=== PATIENT | male | born 1980 | race Two or more races ===

== ENCOUNTER 2017-02-13 11:09 | Inpatient (IN) | payer OTHER ==
[2017-02-13 11:32] VITALS: BMI 23.6
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
[2017-02-13] MEDS ORDERED: guaiFENesin/D-METHORPHAN HB 10 ML UNIT-DOSE CUPS PO PRN (13:37)
[2017-02-13] MEDS ORDERED: MAGNESIUM HYDROX 2400MG/30ML ORAL SUSPENSION 30 ML CUP PO PRN (13:37)
[2017-02-13] MEDS ORDERED: LOPERAMIDE HCL 2 MG CAPSULE PO PRN (13:37)
[2017-02-13] MEDS ORDERED: MENTHOL/PHENOL 1 EACH UD MM PRN (13:37)
[2017-02-13] MEDS ORDERED: MAGNESIUM CITRATE 300 ML BOTTLE PO PRN (13:37)
[2017-02-13] MEDS ORDERED: diphenhydrAMINE HCL 50 MG CAPSULE PO PRN (13:37)
[2017-02-13] MEDS ORDERED: IBUPROFEN 400 MG TABLET (FP) PO PRN (13:37)
[2017-02-13] MEDS ORDERED: MAG HYDROX/AL HYDROX/SIMETH 30 ML UNIT-DOSE CUP PO PRN (13:37)
[2017-02-13] MEDS ORDERED: chlordiazePOXIDE HCL 25 MG CAPSULE PO ONE (13:37)
[2017-02-13] MEDS ORDERED: P-EPHED 60MG/TRIPROLIDI 2.5MG TABLET PO PRN (13:37)
[2017-02-13] MEDS ORDERED: chlordiazePOXIDE HCL 25 MG CAPSULE PO PRN (13:37)
[2017-02-13] MEDS ORDERED: ACETAMINOPHEN 325 MG TABLET (FP) PO PRN (13:37)
[2017-02-13] MEDS ORDERED: hydrOXYzine PAMOATE 50 MG CAPSULE (FP) PO PRN (13:37)
[2017-02-13] MEDS ORDERED: NICOTINE POLACRILEX 2 MG GUM BC PRN (13:37)
[2017-02-13] MEDS: DARUNAVIR ETHANOLATE 800 MG TAB PO SCH (15:24)
[2017-02-13] MEDS: ASPIRIN 81 MG CHEWABLE TABLETS PO SCH (15:24)
[2017-02-13] MEDS: NICOTINE 14 MG/24 HOURS TOPICAL PATCH TD SCH (15:27)
[2017-02-13] MEDS: RITONAVIR 100 MG TABLET PO SCH (18:22)
[2017-02-13] MEDS: EMTRICITABINE 200MG/TENOFOVIR 300MG PO SCH (18:22)
[2017-02-13] MEDS: BACITRACIN 15 GM TUBE TOPICAL OINTMENT TP SCH ×2 (18:23→22:55)
[2017-02-13] MEDS: chlordiazePOXIDE HCL 25 MG CAPSULE PO SCH ×2 (18:24→22:29)
[2017-02-13 20:51] LABS: URINE APPEARANCE TURBID; URINE BILIRUBIN NEGATIVE (NEGATIVE); URINE BLOOD NEGATIVE (NEGATIVE); URINE COLOR YELLOW; URINE GLUCOSE (UA) NEGATIVE (NEGATIVE); URINE KETONE NEGATIVE (NEGATIVE); URINE LEUK ESTERASE TRACE (NEGATIVE); URINE NITRITE NEGATIVE (NEGATIVE); URINE PROTEIN NEGATIVE (NEGATIVE)
[2017-02-13 21:01] LABS: URINE BACTERIA RARE /hpf (NONE SEEN); URINE MUCUS RARE; URINE RBC 3 /hpf (0-3); URINE WBC 26 /hpf (3-5); YEAST MANY
[2017-02-13] MEDS: THIAMINE HCL 100 MG TABLET (FP) PO SCH (22:29)
[2017-02-14] MEDS: chlordiazePOXIDE HCL 25 MG CAPSULE PO SCH ×4 (05:45→22:07)
[2017-02-14 10:06] LABS: MCH 26.4 pg (25.7-33.7); MCHC 32.4 g/dl (32.0-35.9); MEAN CELL VOLUME 81.5 fl (80-96); MEAN PLT VOLUME 8.6 fl (7.5-11.1); PLATELET COUNT 284 K/MM3 (134-434); RDW 16.8 % (11.9-15.9); WHITE BLOOD COUNT 4.9 K/mm3 (4.0-10.0)
[2017-02-14] MEDS: DARUNAVIR ETHANOLATE 800 MG TAB PO SCH (10:23)
[2017-02-14] MEDS: BACITRACIN 15 GM TUBE TOPICAL OINTMENT TP SCH ×2 (10:24→22:32)
[2017-02-14] MEDS: EMTRICITABINE 200MG/TENOFOVIR 300MG PO SCH (10:24)
[2017-02-14] MEDS: PRENATAL VITAMINS W/ FOLIC ACID TABLET (FP) PO SCH (10:24)
[2017-02-14] MEDS: RITONAVIR 100 MG TABLET PO SCH (10:24)
[2017-02-14] MEDS: ASPIRIN 81 MG CHEWABLE TABLETS PO SCH (10:24)
[2017-02-14] MEDS: NICOTINE 14 MG/24 HOURS TOPICAL PATCH TD SCH (10:25)
[2017-02-14 10:28] LABS: ALBUMIN 3.1 g/dl (3.4-5.0); ALK PHOS 63 U/L (45-117); ANION GAP 6 (8-16); BILIRUBIN,TOTAL 0.4 mg/dL (0.2-1.0); CALCIUM 8.7 mg/dL (8.5-10.1); CO2 26 mmol/L (21-32); CREATININE 1.1 mg/dL (0.7-1.3); GLUCOSE,RANDOM 96 mg/dL (74-106); SGOT/AST 13 U/L (15-37); SGPT/ALT 14 U/L (12-78); TOT PROT 6.6 g/dl (6.4-8.2)
--- NOTE | 2017-02-14 10:29 | PN ---
S CIWA - CIWA Score Nausea/Vomitin Muscle Tremors: 3 Anxiety: 2 Agitation: 2 Paroxysmal Sweats: 1-Minimal Palms Moist Orientation: 0-Oriented Tacttile Disturbances: 1-Very Mild Itch/Numbness Auditory Disturbances: 1-Very Mild Visual Disturbances: 1-Very Mild Sensitivity Headache: 2-Mild CIWA-Ar Total Score: 16 S Progress Note (SOAP) Subjective: alert,irritable,anxious,interrupted sleep,tremor Objective: 02/14/17 10:24 Vital Signs Temperature 97.5 F L 02/14/17 09:49 Pulse Rate 80 02/14/17 09:49 Respiratory Rate 20 02/14/17 09:49 Blood Pressure 127/65 02/14/17 09:49 O2 Sat by Pulse Oximetry (%) ekg sinus bradycardia 56/min repolarization no chest pain,no sob,no dizziness 02/14/17 10:29 Laboratory Last Values WBC 4.9 K/mm3 (4.0-10.0) 02/14/17 07:45 RBC 4.83 M/mm3 (4.00-5.60) 02/14/17 07:45 Hgb 12.7 GM/dL (11.7-16.9) 02/14/17 07:45 Hct 39.4 % (35.4-49) 02/14/17 07:45 MCV 81.5 fl (80-96) 02/14/17 07:45 MCH 26.4 pg (25.7-33.7) 02/14/17 07:45 MCHC 32.4 g/dl (32.0-35.9) 02/14/17 07:45 RDW 16.8 % (11.9-15.9) H 02/14/17 07:45 Plt Count 284 K/MM3 (134-434) 02/14/17 07:45 MPV 8.6 fl (7.5-11.1) 02/14/17 07:45 Urine Color Yellow 02/13/17 19:00 Urine Appearance Turbid 02/13/17 19:00 Urine pH 6.0 (5.0-8.0) 02/13/17 19:00 Ur Specific [place] 1.020 (1.005-1.025) 02/13/17 19:00 Urine Protein Negative (NEGATIVE) 02/13/17 19:00 Urine Glucose (UA) Negative (NEGATIVE) 02/13/17 19:00 Urine Ketones Negative (NEGATIVE) 02/13/17 19:00 Urine Blood Negative (NEGATIVE) 02/13/17 19:00 Urine Nitrite Negative (NEGATIVE) 02/13/17 19:00 Urine Bilirubin Negative (NEGATIVE) 02/13/17 19:00 Urine Urobilinogen 2.0 mg/dL (0.2-1.0) 02/13/17 19:00 Ur Leukocyte Esterase Trace (NEGATIVE) 02/13/17 19:00 Urine RBC 3 /hpf (0-3) 02/13/17 19:00 Urine WBC 26 /hpf (3-5) 02/13/17 19:00 Ur Epithelial Cells Rare /hpf (FEW) 02/13/17 19:00 Urine Bacteria Rare /hpf (NONE SEEN) 02/13/17 19:00 Urine Mucus Rare 02/13/17 19:00 Urine Yeast Many 02/13/17 19:00 Assessment: 02/14/17 10:33 withdrawal symptom Plan: continue detox,encourage oral fluid,repeat ua
--- NOTE | 2017-02-14 11:39 | CONSULT ---
[facility] Psychiatric Consult - Data Date of interview: 02/14/17 Admission source: [facility] Identifying data: This is 36 years old male with no psychiatric hospitalizatin history intoxicated with: Alcohol, Cpcoaine, Cannabis, Nicotine Substance Abuse History: - Smoking Cessation. Smoking history: Current every day smoker. Have you smoked in the past 12 months: Yes. Aproximately how many cigarettes per day: 5. Cigars Per Day: 0. Hx Chewing Tobacco Use: No. Initiated information on smoking cessation: Yes. 'Breaking Loose' booklet given : 02/13/17 (GIVEN ON UNIT.). - Substance & Tx. History. Hx Alcohol Use: Yes. Hx Substance Use: Yes. Substance Use Type: Alcohol, Cocaine, Marijuana. Hx Substance Use Treatment: Yes (Previous Detox and Rehab admissions at [facility]. Rehab at [facility] - Substances Abused. Alcohol. Route: Oral. Frequency: Daily. Amount used: VODKA(1 PINT). Age of first use: 21. Date of Last Use: 02/12/17. Crack. Route: Smoking. Frequency: Daily. Amount used : $40. Age of first use: 24. Date of Last Use: 02/11/17. Marijuana/ Hashish. Frequency: Daily. Amount used: $10. Age of first use: 20. Date of Last Use: 02/12/17 Medical History: HIV+, htn, LEARNING DISORDER, Right hand injury Psychiatric History: Patient reprots anxiety, insomnia, reprots taking prior to admission: Seroquel 50mg po qhs Physical/Sexual Abuse/Trauma History: Denies Additional Comment: Seroquel 50mg po qhs Mental Status Exam - Mental Status Exam Alert and Oriented to: Person Cognitive Function: Fair Patient Appearance: Unkempt Mood: Sad Affect: Flat Patient Behavior: Talkative Speech Pattern: Appropriate Voice Loudness: Mildly Loud Thought Process: Circumstantial Thought Disorder: Being Controlled Hallucinations: Denies Suicidal Ideation: Denies Homicidal Ideation: Denies Insight/Judgement: Fair Sleep: Difficulty falling asleep Appetite: Fair Muscle strength/Tone: Normal Gait/Station: Normal Additional Comments: Seroquel 50mg po qhs Psychiatric Findings - Problem List ([place] 1, 2,3) (1) Alcohol dependence with uncomplicated withdrawal Current Visit: Yes Status: Acute (2) Cannabis dependence, uncomplicated Current Visit: Yes Status: Acute (3) Cocaine dependence, uncomplicated Current Visit: Yes Status: Acute (4) Nicotine dependence Current Visit: Yes Status: Chronic Qualifiers: Nicotine product type: cigarettes Substance use status: uncomplicated Qualified Code(s): F17.210 - Nicotine dependence, cigarettes, uncomplicated (5) Cocaine dependence Current Visit: No Status: Acute Qualifiers: Substance use status: uncomplicated Qualified Code(s): F14.20 - Cocaine dependence, uncomplicated (6) Substance-induced sleep disorder Current Visit: No Status: Chronic (7) Drug-induced mood disorder Current Visit: Yes Status: Acute - Initial Treatment Plan Initial Treatment Plan: Seroquel 50mg po qhs
[2017-02-14] MEDS ORDERED: PENICILLIN G BENZATHINE 2,400,000 UNIT/4 ML PFS IM ONE ×2 (15:22→15:42)
--- NOTE | 2017-02-14 15:27 | PN ---
S Progress Note Note: RPR reactive with 1:16; pt states was treated x one a while ago. will start first Penicillan VK 2.4million units now. pt will need to continue to receive the next dose next week and last dose on the third week. pt in agreement
[2017-02-14] MEDS: THIAMINE HCL 100 MG TABLET (FP) PO SCH (22:06)
[2017-02-14] MEDS: QUEtiapine FUMARATE 50 MG TABLET PO SCH (22:07)
[2017-02-15] MEDS: chlordiazePOXIDE HCL 25 MG CAPSULE PO SCH ×2 (06:42→10:14)
--- NOTE | 2017-02-15 10:02 | PN ---
[facility] CIWA - CIWA Score Nausea/Vomitin Muscle Tremors: 3 Anxiety: 3 Agitation: 2 Paroxysmal Sweats: 1-Minimal Palms Moist Orientation: 0-Oriented Tacttile Disturbances: 1-Very Mild Itch/Numbness Auditory Disturbances: 1-Very Mild Visual Disturbances: 1-Very Mild Sensitivity Headache: 1-Very Mild CIWA-Ar Total Score: 16 S Progress Note (SOAP) Subjective: ALERT,IRRITABLE,ANXIOUS,INTERRUPTED SLEEP,TREMOR Objective: 02/15/17 09:58 Vital Signs Temperature 96.1 F L 02/15/17 06:00 Pulse Rate 71 02/15/17 06:00 Respiratory Rate 18 02/15/17 06:00 Blood Pressure 116/66 02/15/17 06:00 O2 Sat by Pulse Oximetry (%) Laboratory Last Values WBC 4.9 K/mm3 (4.0-10.0) 02/14/17 07:45 RBC 4.83 M/mm3 (4.00-5.60) 02/14/17 07:45 Hgb 12.7 GM/dL (11.7-16.9) 02/14/17 07:45 Hct 39.4 % (35.4-49) 02/14/17 07:45 MCV 81.5 fl (80-96) 02/14/17 07:45 MCH 26.4 pg (25.7-33.7) 02/14/17 07:45 MCHC 32.4 g/dl (32.0-35.9) 02/14/17 07:45 RDW 16.8 % (11.9-15.9) H 02/14/17 07:45 Plt Count 284 K/MM3 (134-434) 02/14/17 07:45 MPV 8.6 fl (7.5-11.1) 02/14/17 07:45 Sodium 137 mmol/L (136-145) 02/14/17 07:45 Potassium 4.1 mmol/L (3.5-5.1) 02/14/17 07:45 Chloride 105 mmol/L (98-107) 02/14/17 07:45 Carbon Dioxide 26 mmol/L (21-32) 02/14/17 07:45 Anion Gap 6 (8-16) L 02/14/17 07:45 BUN 15 mg/dL (7-18) 02/14/17 07:45 Creatinine 1.1 mg/dL (0.7-1.3) 02/14/17 07:45 Creat Clearance w eGFR > 60 (>60) 02/14/17 07:45 Random Glucose 96 mg/dL (74-106) 02/14/17 07:45 Calcium 8.7 mg/dL (8.5-10.1) 02/14/17 07:45 Total Bilirubin 0.4 mg/dL (0.2-1.0) 02/14/17 07:45 AST 13 U/L (15-37) L D 02/14/17 07:45 ALT 14 U/L (12-78) D 02/14/17 07:45 Alkaline Phosphatase 63 U/L (45-117) 02/14/17 07:45 Total Protein 6.6 g/dl (6.4-8.2) 02/14/17 07:45 Albumin 3.1 g/dl (3.4-5.0) L D 02/14/17 07:45 Urine Color Yellow 02/13/17 19:00 Urine Appearance Turbid 02/13/17 19:00 Urine pH 6.0 (5.0-8.0) 02/13/17 19:00 Ur Specific [place] 1.020 (1.005-1.025) 02/13/17 19:00 Urine Protein Negative (NEGATIVE) 02/13/17 19:00 Urine Glucose (UA) Negative (NEGATIVE) 02/13/17 19:00 Urine Ketones Negative (NEGATIVE) 02/13/17 19:00 Urine Blood Negative (NEGATIVE) 02/13/17 19:00 Urine Nitrite Negative (NEGATIVE) 02/13/17 19:00 Urine Bilirubin Negative (NEGATIVE) 02/13/17 19:00 Urine Urobilinogen 2.0 mg/dL (0.2-1.0) 02/13/17 19:00 Ur Leukocyte Esterase Trace (NEGATIVE) 02/13/17 19:00 Urine RBC 3 /hpf (0-3) 02/13/17 19:00 Urine WBC 26 /hpf (3-5) 02/13/17 19:00 Ur Epithelial Cells Rare /hpf (FEW) 02/13/17 19:00 Urine Bacteria Rare /hpf (NONE SEEN) 02/13/17 19:00 Urine Mucus Rare 02/13/17 19:00 Urine Yeast Many 02/13/17 19:00 RPR Titer Reactive 1:16 (NONREACTIVE) H D 02/14/17 07:45 Hepatitis C Antibody <0.1 s/co ratio (0.0-0.9) 02/14/17 07:45 02/15/17 10:03 RECEIVING BICILLIN 2.4 MILLIONS UNIT IM YESTERDAY,WILL REQUIRE WEEKLY FOR 2 MORE DOSES Assessment: 02/15/17 10:04 WITHDRAWAL SYMPTOM Plan: CONTINUE DETOX
[2017-02-15] MEDS: BACITRACIN 15 GM TUBE TOPICAL OINTMENT TP SCH ×2 (10:12→22:07)
[2017-02-15] MEDS: RITONAVIR 100 MG TABLET PO SCH (10:12)
[2017-02-15] MEDS: PRENATAL VITAMINS W/ FOLIC ACID TABLET (FP) PO SCH (10:12)
[2017-02-15] MEDS: EMTRICITABINE 200MG/TENOFOVIR 300MG PO SCH (10:12)
[2017-02-15] MEDS: DARUNAVIR ETHANOLATE 800 MG TAB PO SCH (10:12)
[2017-02-15] MEDS: ASPIRIN 81 MG CHEWABLE TABLETS PO SCH (10:12)
[2017-02-15] MEDS: NICOTINE 14 MG/24 HOURS TOPICAL PATCH TD SCH (10:13)
[2017-02-15] MEDS: chlordiazePOXIDE 5 MG CAPSULE PO SCH ×2 (17:46→22:05)
[2017-02-15] MEDS: QUEtiapine FUMARATE 50 MG TABLET PO SCH (22:05)
[2017-02-15] MEDS: THIAMINE HCL 100 MG TABLET (FP) PO SCH (22:05)
[2017-02-16] MEDS: chlordiazePOXIDE 5 MG CAPSULE PO SCH ×2 (05:53→10:06)
[2017-02-16] MEDS: DARUNAVIR ETHANOLATE 800 MG TAB PO SCH (10:06)
[2017-02-16] MEDS: RITONAVIR 100 MG TABLET PO SCH (10:06)
[2017-02-16] MEDS: EMTRICITABINE 200MG/TENOFOVIR 300MG PO SCH (10:06)
[2017-02-16] MEDS: ASPIRIN 81 MG CHEWABLE TABLETS PO SCH (10:06)
[2017-02-16] MEDS: PRENATAL VITAMINS W/ FOLIC ACID TABLET (FP) PO SCH (10:06)
[2017-02-16] MEDS: BACITRACIN 15 GM TUBE TOPICAL OINTMENT TP SCH (10:07)
[2017-02-16] MEDS: NICOTINE 14 MG/24 HOURS TOPICAL PATCH TD SCH (10:08)
--- NOTE | 2017-02-16 10:09 | PN ---
S Progress Note (SOAP) Subjective: ALERT,NO COMPLAINT Objective: 02/16/17 10:06 Vital Signs Temperature 99.5 F 02/16/17 09:37 Pulse Rate 87 02/16/17 09:37 Respiratory Rate 18 02/16/17 09:37 Blood Pressure 142/84 02/16/17 09:37 O2 Sat by Pulse Oximetry (%) Assessment: 02/16/17 10:06 PATIENT IS STABLE FOR DISCHARGE Plan: FOLLOW UP WITH [facility] PATIENT WILL NEED BICILLIN 2.4 MILLION UNITS ON 02/21/17 AND 02/28/17 TO COMPLETE TREATMENT FOR SYPHILIS IN [facility]
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
[2017-02-16 14:25] VITALS: BP 135/90; PULSE 90; TEMP 97.9
--- NOTE | 2017-02-16 14:52 | EKG ---
Test Reason : Blood Pressure : / mmHG Vent. Rate : 056 BPM Atrial Rate : 056 BPM P-R Int : 176 ms QRS Dur : 100 ms QT Int : 446 ms P-R-T Axes : 072 065 063 degrees QTc Int : [address] ELEVATION, CONSIDER EARLY REPOLARIZATION BORDERLINE ECG NO PREVIOUS ECGS AVAILABLE Confirmed by ERNIE ACUÑA MD ([id number]) on 02/16/2017 2:52:22 PM Referred By: Confirmed By:ERNIE ACUÑA MD
[2017-02-16] MEDS ORDERED: chlordiazePOXIDE HCL 10 MG CAPSULE PO SCH (17:00)
== END 2017-02-16 14:31 | disposition other institution (70) | DRG 774 ==
LOC: YASAS 11:09 → Y6N 14:20
PROVIDERS: ADMIT Internal Medicine; ATTEND Internal Medicine
PROC: HZ2ZZZZ Detoxification Services for Substance Abuse Treatment (ICD-10-PCS; principal; 2017-02-13)
DX: F14.20 Cocaine dependence, uncomplicated (principal); F12.20 Cannabis dependence, uncomplicated; F17.210 Nicotine dependence, cigarettes, uncomplicated; F19.24 Other psychoactive substance dependence with psychoactive substance-induced mood disorder; F19.282 Other psychoactive substance dependence with psychoactive substance-induced sleep disorder; Z21 Asymptomatic human immunodeficiency virus [HIV] infection status; A53.9 Syphilis, unspecified; T23.27 Burn of second degree of wrist; T23.20 Burn of second degree of hand, unspecified site; T31.0 Burns involving less than 10% of body surface; X08.8XXS Exposure to other specified smoke, fire and flames, sequela; R00.1 Bradycardia, unspecified; Z87.898 Personal history of other specified conditions
CPT/HCPCS: 36415; 80053; 81003; 81015; 85027; 86593; 86780; 86803; 93005; 93010

== ENCOUNTER 2017-02-16 15:29 | Inpatient (IN) | payer OTHER ==
[2017-02-16 17:40] VITALS: BMI 23.6
[2017-02-16] MEDS ORDERED: P-EPHED 60MG/TRIPROLIDI 2.5MG TABLET PO PRN (18:02)
[2017-02-16] MEDS ORDERED: IBUPROFEN 400 MG TABLET (FP) PO PRN (18:02)
[2017-02-16] MEDS ORDERED: ACETAMINOPHEN 325 MG TABLET (FP) PO PRN (18:02)
[2017-02-16] MEDS ORDERED: guaiFENesin/D-METHORPHAN HB 10 ML UNIT-DOSE CUPS PO PRN (18:02)
[2017-02-16] MEDS ORDERED: MAGNESIUM HYDROX 2400MG/30ML ORAL SUSPENSION 30 ML CUP PO PRN (18:02)
[2017-02-16] MEDS ORDERED: MENTHOL/PHENOL 1 EACH UD MM PRN (18:02)
[2017-02-16] MEDS ORDERED: MAGNESIUM CITRATE 300 ML BOTTLE PO PRN (18:02)
[2017-02-16] MEDS ORDERED: LOPERAMIDE HCL 2 MG CAPSULE PO PRN (18:02)
[2017-02-16] MEDS ORDERED: MAG HYDROX/AL HYDROX/SIMETH 30 ML UNIT-DOSE CUP PO PRN (18:02)
--- NOTE | 2017-02-16 18:06 | HP ---
[facility] Assess/Revision - Admission History Admitted to Rehab from: [facility] Date of Admission to Rehab: 02/16/17 - Vital signs Vital Signs: Vital Signs Period Temp Pulse Resp BP Sys/Vanessa Pulse Ox Last 24 Hr 98.6 F 81 18 - Findings Detox History & Physical reviewed: Yes Concur with findings: Yes
[2017-02-16] MEDS: THIAMINE HCL 100 MG TABLET (FP) PO SCH (21:52)
[2017-02-16] MEDS: diphenhydrAMINE HCL 50 MG CAPSULE PO PRN (21:53)
[2017-02-16] MEDS ORDERED: RITONAVIR 100 MG TABLET PO SCH (22:00)
[2017-02-16] MEDS ORDERED: DARUNAVIR ETHANOLATE 800 MG TAB PO SCH (22:00)
[2017-02-16] MEDS ORDERED: EMTRICITABINE 200MG/TENOFOVIR 300MG PO SCH (22:00)
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
[2017-02-17] MEDS: NICOTINE 14 MG/24 HOURS TOPICAL PATCH TD SCH (10:37)
[2017-02-17] MEDS: PRENATAL VITAMINS W/ FOLIC ACID TABLET (FP) PO SCH (10:38)
[2017-02-17] MEDS: RITONAVIR 100 MG TABLET PO SCH (10:38)
[2017-02-17] MEDS: DARUNAVIR ETHANOLATE 800 MG TAB PO SCH (10:38)
[2017-02-17] MEDS: EMTRICITABINE 200MG/TENOFOVIR 300MG PO SCH (10:39)
[2017-02-17] MEDS ORDERED: PNEUMOC 13-VAL CONJ-DIP CRM/PF 0.5 ML DISP.SYRIN IM ONE (12:00)
[2017-02-17] MEDS: THIAMINE HCL 100 MG TABLET (FP) PO SCH (21:14)
[2017-02-17] MEDS: QUEtiapine FUMARATE 50 MG TABLET PO SCH (21:14)
[2017-02-18] MEDS: EMTRICITABINE 200MG/TENOFOVIR 300MG PO SCH (10:13)
[2017-02-18] MEDS: NICOTINE 14 MG/24 HOURS TOPICAL PATCH TD SCH (10:13)
[2017-02-18] MEDS: PRENATAL VITAMINS W/ FOLIC ACID TABLET (FP) PO SCH (10:13)
[2017-02-18] MEDS: DARUNAVIR ETHANOLATE 800 MG TAB PO SCH (10:13)
[2017-02-18] MEDS: RITONAVIR 100 MG TABLET PO SCH (10:14)
[2017-02-18] MEDS: diphenhydrAMINE HCL 50 MG CAPSULE PO PRN (21:38)
[2017-02-18] MEDS: THIAMINE HCL 100 MG TABLET (FP) PO SCH (21:38)
[2017-02-18] MEDS: QUEtiapine FUMARATE 50 MG TABLET PO SCH (21:39)
[2017-02-19] MEDS: RITONAVIR 100 MG TABLET PO SCH (10:13)
[2017-02-19] MEDS: EMTRICITABINE 200MG/TENOFOVIR 300MG PO SCH (10:13)
[2017-02-19] MEDS: DARUNAVIR ETHANOLATE 800 MG TAB PO SCH (10:13)
[2017-02-19] MEDS: PRENATAL VITAMINS W/ FOLIC ACID TABLET (FP) PO SCH (10:13)
[2017-02-19] MEDS: NICOTINE 14 MG/24 HOURS TOPICAL PATCH TD SCH (10:14)
[2017-02-19] MEDS: QUEtiapine FUMARATE 50 MG TABLET PO SCH (21:44)
[2017-02-19] MEDS: THIAMINE HCL 100 MG TABLET (FP) PO SCH (21:44)
[2017-02-19] MEDS: diphenhydrAMINE HCL 50 MG CAPSULE PO PRN (21:45)
[2017-02-20] MEDS: DARUNAVIR ETHANOLATE 800 MG TAB PO SCH (10:25)
[2017-02-20] MEDS: PRENATAL VITAMINS W/ FOLIC ACID TABLET (FP) PO SCH (10:25)
[2017-02-20] MEDS: RITONAVIR 100 MG TABLET PO SCH (10:25)
[2017-02-20] MEDS: NICOTINE 14 MG/24 HOURS TOPICAL PATCH TD SCH (10:26)
[2017-02-20] MEDS: EMTRICITABINE 200MG/TENOFOVIR 300MG PO SCH (10:27)
[2017-02-20] MEDS: QUEtiapine FUMARATE 50 MG TABLET PO SCH (21:38)
[2017-02-20] MEDS: THIAMINE HCL 100 MG TABLET (FP) PO SCH (21:38)
[2017-02-20] MEDS: diphenhydrAMINE HCL 50 MG CAPSULE PO PRN (21:39)
[2017-02-21] MEDS: PRENATAL VITAMINS W/ FOLIC ACID TABLET (FP) PO SCH (10:49)
[2017-02-21] MEDS: EMTRICITABINE 200MG/TENOFOVIR 300MG PO SCH (10:49)
[2017-02-21] MEDS: RITONAVIR 100 MG TABLET PO SCH (10:49)
[2017-02-21] MEDS: DARUNAVIR ETHANOLATE 800 MG TAB PO SCH (10:49)
[2017-02-21] MEDS: NICOTINE 14 MG/24 HOURS TOPICAL PATCH TD SCH (10:49)
--- NOTE | 2017-02-21 13:02 | PN ---
[facility] Progress Note Note: patient due for 2nd shot of bicillin 2.4 million unit today i
[2017-02-21] MEDS ORDERED: PENICILLIN G BENZATHINE 2,400,000 UNIT/4 ML PFS IM ONE (13:30)
--- NOTE | 2017-02-21 16:48 | PN ---
Psychiatric Progress Note Vital Signs: Vital Signs Period Temp Pulse Resp BP Sys/Vanessa Pulse Ox Last 24 Hr 98.3 F 67 16-16 139/87 Date of Session: 02/21/17 Chief Complaint:: Davidson nervios,davidson not sleeping well. HPI: Patient addressed Alcohol,Cocaine and Cannabis dependence comorbid with Substance induced mood disorder. Current Medications: Active Medications Generic Name Dose Route Start Last Admin Trade Name Freq PRN Reason Stop Dose Admin Acetaminophen 650 mg 02/16/17 18:02 Tylenol - PO Q4H PRN FEVER OR PAIN Al Hydroxide/Mg Hydroxide 30 ml 02/16/17 18:02 02/19/17 17:45 Mylanta Oral Suspension - PO 30 ml Q6H PRN Administration DYSPEPSIA Darunavir 800 mg 02/17/17 10:00 02/21/17 10:49 Prezista - PO 800 mg DAILY HAN Administration Diphenhydramine HCl 50 mg 02/16/17 18:02 02/20/17 21:39 Benadryl - PO 50 mg HSMR1 PRN Administration FOR ITCHING Emtricitabine/Tenofovir 1 tab 02/17/17 10:00 02/21/17 10:49 Truvada PO 1 tab DAILY AHN Administration Eucalyptus/Menthol/Phenol/Sorbitol 1 each 02/16/17 18:02 Cepastat Lozenge - MM Q4H PRN SORE THROAT Guaifenesin 10 ml 02/16/17 18:02 Robitussin Dm - PO Q6H PRN COUGH Ibuprofen 400 mg 02/16/17 18:02 Motrin - PO Q6H PRN PAIN Loperamide HCl 4 mg 02/16/17 18:02 Imodium - PO Q6H PRN DIARRHEA Magnesium Hydroxide 30 ml 02/16/17 18:02 Milk Of Magnesia - PO DAILY PRN CONSTIPATION Nicotine 14 mg 02/17/17 10:00 02/21/17 10:49 Nicoderm Patch - TD 14 mg DAILY HAN Administration Nicotine Polacrilex 2 mg 02/16/17 18:02 Nicorette Gum - BUC Q2H PRN NICOTINE REPLACEMENT RX Multivit/Folic Acid/Iron 1 tab 02/17/17 10:00 02/21/17 10:49 Vitamins (Sjr) - PO 1 tab DAILY HAN Administration Pseudoephedrine/Triprolidine 1 combo 02/16/17 18:02 Actifed - PO TID PRN NASAL CONGESTION Quetiapine Fumarate 100 mg 02/21/17 22:00 Seroquel - PO HS HAN Ritonavir 100 mg 02/17/17 10:00 02/21/17 10:49 Norvir - PO 100 mg DAILY HAN Administration Thiamine HCl 100 mg 02/16/17 22:00 02/20/17 21:38 Vitamin B1 - PO 100 mg HS HAN Administration Current Side Effect: No Lab tests ordered: No Lab tests reviewed: Yes Provider note:: Chart was revuewed,patient was evaluated to address his ongoing sleeping difficulties along with mood instability,some anxiety.Properties of Seroquel has been discussed with the patient including benefits,side effects and dose adjustment.Seroquel 50 mg po hs will be adjusted to 100 mg po hs. supportive therapy,psychoeducation was provided. Total face to face time:: 30 Mental Status Exam - Mental Status Exam Alert and Oriented to: Time, Place, Person Cognitive Function: Grossly Intact Patient Appearance: Well Groomed Mood: Anxious Affect: Mood Congruent, Labile Patient Behavior: Cooperative Speech Pattern: Clear Voice Loudness: Normal Thought Process: Goal Oriented Thought Disorder: Not Present Hallucinations: Denies Suicidal Ideation: Denies Homicidal Ideation: Denies Insight/Judgement: Fair Sleep: Difficulty falling asleep Appetite: Good Muscle strength/Tone: Normal Gait/Station: Normal Psychiatric Treatment Plan - Problem List (1) Alcohol dependence Current Visit: Yes (2) Cannabis dependence Current Visit: Yes (3) Substance induced mood disorder Current Visit: Yes (4) Burn of right wrist and hand Current Visit: Yes Qualifiers: Encounter type: sequela Burn degree: partial thickness (2nd degree) Qualified Code(s): T23.271S - Burn of second degree of right wrist, sequela; T23.201S - Burn of second degree of right hand, unspecified site, sequela Comment: Due to contact with Acid. (5) Cocaine dependence Current Visit: Yes Qualifiers:
[2017-02-21] MEDS: THIAMINE HCL 100 MG TABLET (FP) PO SCH (22:02)
[2017-02-21] MEDS: QUEtiapine FUMARATE 100 MG TABLET (FP) PO SCH (22:02)
[2017-02-22] MEDS: NICOTINE 14 MG/24 HOURS TOPICAL PATCH TD SCH (10:23)
[2017-02-22] MEDS: PRENATAL VITAMINS W/ FOLIC ACID TABLET (FP) PO SCH (10:23)
[2017-02-22] MEDS: DARUNAVIR ETHANOLATE 800 MG TAB PO SCH (10:45)
[2017-02-22] MEDS: EMTRICITABINE 200MG/TENOFOVIR 300MG PO SCH (11:42)
[2017-02-22] MEDS: RITONAVIR 100 MG TABLET PO SCH (11:42)
[2017-02-22] MEDS: THIAMINE HCL 100 MG TABLET (FP) PO SCH (22:04)
[2017-02-22] MEDS: QUEtiapine FUMARATE 100 MG TABLET (FP) PO SCH (22:05)
[2017-02-22] MEDS: diphenhydrAMINE HCL 50 MG CAPSULE PO PRN (22:05)
[2017-02-23] MEDS: NICOTINE 14 MG/24 HOURS TOPICAL PATCH TD SCH (10:35)
[2017-02-23] MEDS: PRENATAL VITAMINS W/ FOLIC ACID TABLET (FP) PO SCH (10:35)
[2017-02-23] MEDS: EMTRICITABINE 200MG/TENOFOVIR 300MG PO SCH (10:35)
[2017-02-23] MEDS: RITONAVIR 100 MG TABLET PO SCH (10:35)
[2017-02-23] MEDS: DARUNAVIR ETHANOLATE 800 MG TAB PO SCH (10:35)
[2017-02-23] MEDS: QUEtiapine FUMARATE 100 MG TABLET (FP) PO SCH (22:08)
[2017-02-23] MEDS: THIAMINE HCL 100 MG TABLET (FP) PO SCH (22:08)
[2017-02-23] MEDS: diphenhydrAMINE HCL 50 MG CAPSULE PO PRN (22:08)
[2017-02-24] MEDS: PRENATAL VITAMINS W/ FOLIC ACID TABLET (FP) PO SCH (10:48)
[2017-02-24] MEDS: DARUNAVIR ETHANOLATE 800 MG TAB PO SCH (10:48)
[2017-02-24] MEDS: RITONAVIR 100 MG TABLET PO SCH (10:48)
[2017-02-24] MEDS: EMTRICITABINE 200MG/TENOFOVIR 300MG PO SCH (10:48)
[2017-02-24] MEDS: NICOTINE 14 MG/24 HOURS TOPICAL PATCH TD SCH (10:49)
[2017-02-24] MEDS: QUEtiapine FUMARATE 100 MG TABLET (FP) PO SCH (21:13)
[2017-02-24] MEDS: diphenhydrAMINE HCL 50 MG CAPSULE PO PRN (21:13)
[2017-02-24] MEDS: THIAMINE HCL 100 MG TABLET (FP) PO SCH (21:13)
[2017-02-25] MEDS: PRENATAL VITAMINS W/ FOLIC ACID TABLET (FP) PO SCH (10:23)
[2017-02-25] MEDS: DARUNAVIR ETHANOLATE 800 MG TAB PO SCH (10:24)
[2017-02-25] MEDS: RITONAVIR 100 MG TABLET PO SCH (10:24)
[2017-02-25] MEDS: NICOTINE 14 MG/24 HOURS TOPICAL PATCH TD SCH (10:24)
[2017-02-25] MEDS: EMTRICITABINE 200MG/TENOFOVIR 300MG PO SCH (10:24)
[2017-02-25] MEDS: NICOTINE POLACRILEX 2 MG GUM BUC PRN (10:25)
[2017-02-25] MEDS: QUEtiapine FUMARATE 100 MG TABLET (FP) PO SCH (21:53)
[2017-02-25] MEDS: THIAMINE HCL 100 MG TABLET (FP) PO SCH (21:53)
[2017-02-25] MEDS: diphenhydrAMINE HCL 50 MG CAPSULE PO PRN (21:53)
[2017-02-26] MEDS: NICOTINE 14 MG/24 HOURS TOPICAL PATCH TD SCH (10:29)
[2017-02-26] MEDS: PRENATAL VITAMINS W/ FOLIC ACID TABLET (FP) PO SCH (10:30)
[2017-02-26] MEDS: EMTRICITABINE 200MG/TENOFOVIR 300MG PO SCH (10:30)
[2017-02-26] MEDS: DARUNAVIR ETHANOLATE 800 MG TAB PO SCH (10:30)
[2017-02-26] MEDS: RITONAVIR 100 MG TABLET PO SCH (10:30)
[2017-02-26] MEDS: QUEtiapine FUMARATE 100 MG TABLET (FP) PO SCH (21:31)
[2017-02-26] MEDS: THIAMINE HCL 100 MG TABLET (FP) PO SCH (21:31)
[2017-02-26] MEDS: diphenhydrAMINE HCL 50 MG CAPSULE PO PRN (21:32)
[2017-02-27] MEDS: EMTRICITABINE 200MG/TENOFOVIR 300MG PO SCH (10:34)
[2017-02-27] MEDS: DARUNAVIR ETHANOLATE 800 MG TAB PO SCH (10:34)
[2017-02-27] MEDS: RITONAVIR 100 MG TABLET PO SCH (10:34)
[2017-02-27] MEDS: PRENATAL VITAMINS W/ FOLIC ACID TABLET (FP) PO SCH (10:34)
[2017-02-27] MEDS: NICOTINE 14 MG/24 HOURS TOPICAL PATCH TD SCH (10:35)
[2017-02-27] MEDS: NICOTINE POLACRILEX 2 MG GUM BUC PRN (19:34)
[2017-02-27] MEDS: diphenhydrAMINE HCL 50 MG CAPSULE PO PRN (21:14)
[2017-02-27] MEDS: QUEtiapine FUMARATE 100 MG TABLET (FP) PO SCH (21:14)
[2017-02-27] MEDS: THIAMINE HCL 100 MG TABLET (FP) PO SCH (21:14)
[2017-02-28] MEDS: NICOTINE 14 MG/24 HOURS TOPICAL PATCH TD SCH (10:39)
[2017-02-28] MEDS: PRENATAL VITAMINS W/ FOLIC ACID TABLET (FP) PO SCH (10:39)
[2017-02-28] MEDS: RITONAVIR 100 MG TABLET PO SCH (10:39)
[2017-02-28] MEDS: DARUNAVIR ETHANOLATE 800 MG TAB PO SCH (10:39)
[2017-02-28] MEDS: EMTRICITABINE 200MG/TENOFOVIR 300MG PO SCH (10:39)
[2017-02-28] MEDS: NICOTINE POLACRILEX 2 MG GUM BUC PRN (10:42)
--- NOTE | 2017-02-28 12:32 | PN ---
S Progress Note Note: patient is due for the third injection of bicillin 2.4 million unit today for positive rpr
[2017-02-28] MEDS ORDERED: PENICILLIN G BENZATHINE 2,400,000 UNIT/4 ML PFS IM ONE (13:00)
[2017-02-28] MEDS: THIAMINE HCL 100 MG TABLET (FP) PO SCH (21:40)
[2017-02-28] MEDS: QUEtiapine FUMARATE 100 MG TABLET (FP) PO SCH (21:40)
[2017-02-28] MEDS: diphenhydrAMINE HCL 50 MG CAPSULE PO PRN (21:40)
[2017-03-01 07:03] VITALS: BP 129/77; PULSE 72; TEMP 97.7
[2017-03-01] MEDS: PRENATAL VITAMINS W/ FOLIC ACID TABLET (FP) PO SCH (10:45)
[2017-03-01] MEDS: DARUNAVIR ETHANOLATE 800 MG TAB PO SCH (10:45)
[2017-03-01] MEDS: EMTRICITABINE 200MG/TENOFOVIR 300MG PO SCH (10:45)
[2017-03-01] MEDS: RITONAVIR 100 MG TABLET PO SCH (10:45)
[2017-03-01] MEDS: NICOTINE 14 MG/24 HOURS TOPICAL PATCH TD SCH (10:46)
[2017-03-01] MEDS: THIAMINE HCL 100 MG TABLET (FP) PO SCH (21:48)
[2017-03-01] MEDS: diphenhydrAMINE HCL 50 MG CAPSULE PO PRN (21:48)
[2017-03-01] MEDS: QUEtiapine FUMARATE 100 MG TABLET (FP) PO SCH (21:48)
[2017-03-02] MEDS: DARUNAVIR ETHANOLATE 800 MG TAB PO SCH (09:41)
[2017-03-02] MEDS: EMTRICITABINE 200MG/TENOFOVIR 300MG PO SCH (09:41)
[2017-03-02] MEDS: RITONAVIR 100 MG TABLET PO SCH (09:41)
[2017-03-02] MEDS: PRENATAL VITAMINS W/ FOLIC ACID TABLET (FP) PO SCH (09:41)
[2017-03-02] MEDS: NICOTINE 14 MG/24 HOURS TOPICAL PATCH TD SCH (09:42)
[2017-03-02] MEDS: NICOTINE POLACRILEX 2 MG GUM BUC PRN (09:43)
--- NOTE | 2017-03-02 10:15 | PN ---
Psychiatric Progress Note Vital Signs: Vital Signs Period Temp Pulse Resp BP Sys/Vanessa Pulse Ox Last 24 Hr 16-16 Date of Session: 03/02/17 Chief Complaint:: discharge visit HPI: Patient has addressed Alcohol,Cocaine and Cannabis dependence comorbid with Substance induced mood and sleep disorder. ROS: HIV+and , HTN medically managed Current Medications: Active Medications Generic Name Dose Route Start Last Admin Trade Name Freq PRN Reason Stop Dose Admin Acetaminophen 650 mg 02/16/17 18:02 Tylenol - PO Q4H PRN FEVER OR PAIN Al Hydroxide/Mg Hydroxide 30 ml 02/16/17 18:02 02/19/17 17:45 Mylanta Oral Suspension - PO 30 ml Q6H PRN Administration DYSPEPSIA Darunavir 800 mg 02/17/17 10:00 03/02/17 09:41 Prezista - PO 800 mg DAILY HAN Administration Diphenhydramine HCl 50 mg 02/16/17 18:02 03/01/17 21:48 Benadryl - PO 50 mg HSMR1 PRN Administration FOR ITCHING Emtricitabine/Tenofovir 1 tab 02/17/17 10:00 03/02/17 09:41 Truvada PO 1 tab DAILY HAN Administration Eucalyptus/Menthol/Phenol/Sorbitol 1 each 02/16/17 18:02 Cepastat Lozenge - MM Q4H PRN SORE THROAT Guaifenesin 10 ml 02/16/17 18:02 Robitussin Dm - PO Q6H PRN COUGH Ibuprofen 400 mg 02/16/17 18:02 02/21/17 16:48 Motrin - PO 400 mg Q6H PRN Administration PAIN Loperamide HCl 4 mg 02/16/17 18:02 Imodium - PO Q6H PRN DIARRHEA Magnesium Hydroxide 30 ml 02/16/17 18:02 Milk Of Magnesia - PO DAILY PRN CONSTIPATION Nicotine 14 mg 02/17/17 10:00 03/02/17 09:42 Nicoderm Patch - TD Not Given DAILY HAN Nicotine Polacrilex 2 mg 02/16/17 18:02 03/02/17 09:43 Nicorette Gum - BUC 2 mg Q2H PRN Administration NICOTINE REPLACEMENT RX Multivit/Folic Acid/Iron 1 tab 02/17/17 10:00 03/02/17 09:41 Vitamins (Sjr) - PO 1 tab DAILY HAN Administration Pseudoephedrine/Triprolidine 1 combo 02/16/17 18:02 Actifed - PO TID PRN NASAL CONGESTION Quetiapine Fumarate 100 mg 02/21/17 22:00 03/01/17 21:48 Seroquel - PO 100 mg HS HAN Administration Ritonavir 100 mg 02/17/17 10:00 03/02/17 09:41 Norvir - PO 100 mg DAILY HAN Administration Thiamine HCl 100 mg 02/16/17 22:00 03/01/17 21:48 Vitamin B1 - PO 100 mg HS HAN Administration Current Side Effect: No Lab tests ordered: No Lab tests reviewed: Yes Provider note:: Patient has completed this treatment and met his goals, will continue to address his issues at [facility] outpatient treatment program, where he will f/u with apsychiatrist as well. Patient gained insights into his problems and motivated to continue maintain abstience. Patient continues finding that Seroquel effctive in terms of anxiety redaction, mood stabilization and sleep imrpovement. Scripts provided for 30 days, patient is stable for discharge today. Total face to face time:: 35 Mental Status Exam - Mental Status Exam Alert and Oriented to: Time, Place, Person Cognitive Function: Good Patient Appearance: Well Groomed Mood: Hopeful Affect: Appropriate, Mood Congruent Patient Behavior: Appropriate, Cooperative Speech Pattern: Clear, Appropriate Voice Loudness: Normal Thought Process: Intact, Goal Oriented Thought Disorder: Not Present Hallucinations: Denies Suicidal Ideation: Denies Homicidal Ideation: Denies Insight/Judgement: Good Sleep: Well Appetite: Good Muscle strength/Tone: Normal Gait/Station: Normal Psychiatric Treatment Plan - Problem List (1) Cocaine dependence Current Visit: Yes Qualifiers: (2) Nicotine dependence Current Visit: No Qualifiers: (3) Cannabis dependence Current Visit: Yes (4) Alcohol dependence Current Visit: Yes (5) Substance-induced sleep disorder Current Visit: No (6) Substance induced mood disorder Current Visit: Yes
== END 2017-03-02 11:00 | disposition home or self-care (01) | DRG 772 ==
LOC: YASAS 15:29 → Y5N 15:30
PROVIDERS: ADMIT Psychiatry & Neurology Psychiatry; ATTEND Psychiatry & Neurology Psychiatry
PROC: HZ42ZZZ Group Counseling for Substance Abuse Treatment, Cognitive-Behavioral (ICD-10-PCS; principal; 2017-03-02)
DX: F10.20 Alcohol dependence, uncomplicated (principal); F14.20 Cocaine dependence, uncomplicated; F12.20 Cannabis dependence, uncomplicated; F17.210 Nicotine dependence, cigarettes, uncomplicated; F19.282 Other psychoactive substance dependence with psychoactive substance-induced sleep disorder; F19.24 Other psychoactive substance dependence with psychoactive substance-induced mood disorder; A53.9 Syphilis, unspecified; Z21 Asymptomatic human immunodeficiency virus [HIV] infection status
CPT/HCPCS: 90670

== ENCOUNTER 2017-06-09 09:03 | Inpatient (IN) | payer OTHER ==
[2017-06-09 09:50] VITALS: BMI 24.9
--- NOTE | 2017-06-09 14:18 | HP ---
CIWA Score - CIWA Score Nausea/Vomitin-No Nausea/No Vomiting Muscle Tremors: 3 Anxiety: 4-Mod. Anxious/Guarded Agitation: 2 Paroxysmal Sweats: 3 Orientation: 0-Oriented Tacttile Disturbances: 2-Mild Itch/Numbness/Burn Auditory Disturbances: 0-None Visual Disturbances: 2-Mild Sensitivity Headache: 0-None Present CIWA-Ar Total Score: 16 Admission ROS BHS - HPI Chief Complaint: "I need to get help and to get better." Patient is here to Detox from Alcohol. Allergies/Adverse Reactions: Allergies Allergy/AdvReac Type Severity Reaction Status Date / Time No Known Allergies Allergy Verified 06/09/17 10:37 History of Present Illness: Pt. is a 36 YO male here to Detox from Alcohol. Patient has had several previous Detox / Rehab admissions at [facility] in the past; most recent, patient completed Detox and Rehab in 02/2017. Exam Limitations: No Limitations - Ebola screening Have you traveled outside of the country in the last 21 days: No (N) Have you had contact with anyone from an Ebola affected area: No Have you been sick,other than usual withdrawal symptoms: No Do you have a fever: No - Review of Systems Constitutional: Diaphoresis, Malaise, Night Sweats, Changes in sleep, Unintentional Wgt. Loss (Lost approx.10 lbs. over last 3 months.) EENT: reports: Dental Problems (Several teeth that need to be pulled.) Respiratory: reports: Cough Cardiac: reports: No Symptoms Reported GI: reports: No Symptoms Reported : reports: No Symptoms Reported Musculoskeletal: reports: No Symptoms Reported Integumentary: reports: No Symptoms Reported Neuro: reports: Tremors Endocrine: reports: No Symptoms Reported Hematology: reports: No Symptoms Reported Psychiatric: reports: Judgement Intact, Mood/Affect Appropiate, Orientated x3, Anxious, Depressed (Occasional.) Other Systems: Reviewed and Negative Patient History - Patient Medical History Hx Anemia: No Hx Asthma: No Hx Chronic Obstructive Pulmonary Disease (COPD): No Hx Cancer: No Hx Cardiac Disorders: No Hx Congestive Heart Failure: No Hx Hypertension: Yes (Meds. in past, none currently.) Hx Hypercholesterolemia: No Hx Pacemaker: No HX Cerebrovascular Accident: No Hx Seizures: No Hx Dementia: No Hx Diabetes: No Hx Gastrointestinal Disorders: No Hx Liver Disease: No Hx Genitourinary Disorders: No Hx Sexually Transmitted Disorders: No Hx Renal Disease (ESRD): No Hx Thyroid Disease: No Hx Human Immunodeficiency Virus (HIV): Yes (SINCE 2005;Currently takes TRIUMEQ.) Hx Hepatitis C: No (Last Tested: 02/2017: NEGATIVE.) Hx Depression: Yes (Intermittent.) Hx Suicide Attempt: No (PATIENT DENIES CURRENT SI / HI.) Hx Bipolar Disorder: No Hx Schizophrenia: No Other Medical History: Hormonal Treatment for Gender Re-Assignment. - Patient Surgical History Past Surgical History: No Hx Neurologic Surgery: No Hx Cataract Extraction: No Hx Cardiac Surgery: No Hx Lung Surgery: No Hx Breast Surgery: No Hx Breast Biopsy: No Hx Abdominal Surgery: No Hx Appendectomy: No Hx Cholecystectomy: No Hx Genitourinary Surgery: No Hx Section: No Hx Orthopedic Surgery: No Anesthesia Reaction: No - PPD History Previous Implant?: Yes Documented Results: Negative w/proof Implanted On Prior [facility] Admission?: Yes Date: 02/15/17 Results: 0 mm PPD to be Administered?: No - Reproductive History Patient is a Female of Child Bearing Age (11 -55 yrs old): No (PATIENT IS MALE.) - Smoking Cessation Smoking history: Current every day smoker Have you smoked in the past 12 months: Yes Aproximately how many cigarettes per day: 6 Cigars Per Day: 0 Hx Chewing Tobacco Use: No Initiated information on smoking cessation: Yes 'Breaking Loose' booklet given: 06/09/17 (GIVEN ON UNIT.) - Substance & Tx. History Hx Alcohol Use: Yes Hx Substance Use: Yes Substance Use Type: Alcohol, Cocaine Hx Substance Use Treatment: Yes (Previous Detox / Rehab admissions at [facility] (Last : 02/2017).) - Substances Abused Alcohol Route: Oral Frequency: Daily Amount used: Vodka 1 pint Age of first use: 27 Date of Last Use: 06/09/17 Crack Route: Smoking Frequency: Daily Amount used: $40 Age of first use: 24 Date of Last Use: 06/08/17 Marijuana/Hashish Route: Smoking Frequency: 3-6 times per week Amount used: $10 Age of first use: 20 Date of Last Use: 06/08/17 Family Disease History - Family Disease History Family Disease History: Heart Disease: Mother (, Liver Failure.), Other : Mother Admission Physical Exam BHS - Vital Signs Vital Signs: Vital Signs - 24 hr 06/09/17 09:45 Temperature 96 F L Pulse Rate 78 Respiratory 20 Rate Blood Pressure 138/105 - Physical General Appearance: Yes: No Apparent Distress, Nourished, Appropriately Dressed , Tremorous, Anxious HEENTM: Yes: Hearing grossly Normal, Normocephalic, Normal Voice, NIKKI, Pharynx Normal Respiratory: Yes: Chest Non-Tender, No Respiratory Distress, No Accessory Muscle Use, Wheezing Neck: Yes: No masses,lesions,Nodules, Supple, Trachea in good position Breast: Yes: Breast Exam Deferred Cardiology: Yes: Regular Rhythm, Regular Rate, S1, S2 Abdominal: Yes: Normal Bowel Sounds, Non Tender, Flat, Soft Genitourinary: Yes: Within Normal Limits Back: Yes: Normal Inspection Musculoskeletal: Yes: full range of Motion, Gait Steady Extremities: Yes: Normal Capillary Refill, Normal Range of Motion, Non-Tender, Tremors Neurological: Yes: Fully Oriented, Alert, Normal Mood/Affect, Normal Response Integumentary: Yes: Normal Color, Dry, Warm Lymphatic: Yes: Within Normal Limits - Diagnostic (1) History of hypertension Current Visit: Yes Status: Suspected (2) Alcohol dependence with uncomplicated withdrawal Current Visit: Yes Status: Acute (3) Cannabis dependence, uncomplicated Current Visit: Yes Status: Chronic (4) Cocaine dependence, uncomplicated Current Visit: Yes Status: Acute (5) HIV (human immunodeficiency virus infection) Current Visit: Yes Status: Chronic (6) Nicotine dependence Current Visit: Yes Status: Chronic Qualifiers: Nicotine product type: cigarettes Substance use status: uncomplicated Qualified Code(s): F17.210 - Nicotine dependence, cigarettes, uncomplicated (7) Depression (emotion) Current Visit: Yes Status: Suspected Qualifiers: Depression Type: unspecified Qualified Code(s): F32.9 - Major depressive disorder, single episode, unspecified Cleared for Admission BHS - Detox or Rehab [facility] Level of Care: Medically Managed Detox Regimen/Protocol: Librium [facility] Breath Alcohol Content Breath Alcohol Content: 0 Urine Drug Screen - Results Drug Screen Negative: No Urine Drug Screen Results: THC-Marijuana, AURELIA-Cocaine
[2017-06-09] MEDS ORDERED: chlordiazePOXIDE HCL 25 MG CAPSULE PO PRN (14:41)
[2017-06-09] MEDS ORDERED: P-EPHED 60MG/TRIPROLIDI 2.5MG TABLET PO PRN (14:41)
[2017-06-09] MEDS ORDERED: LOPERAMIDE HCL 2 MG CAPSULE PO PRN (14:41)
[2017-06-09] MEDS ORDERED: MAGNESIUM CITRATE 300 ML BOTTLE PO PRN (14:41)
[2017-06-09] MEDS ORDERED: NICOTINE POLACRILEX 2 MG GUM BUC PRN (14:41)
[2017-06-09] MEDS ORDERED: MENTHOL/PHENOL 1 EACH UD MM PRN (14:41)
[2017-06-09] MEDS ORDERED: MAGNESIUM HYDROX 2400MG/30ML ORAL SUSPENSION 30 ML CUP PO PRN (14:41)
[2017-06-09] MEDS ORDERED: IBUPROFEN 400 MG TABLET (FP) PO PRN (14:41)
[2017-06-09] MEDS ORDERED: MAG HYDROX/AL HYDROX/SIMETH 30 ML UNIT-DOSE CUP PO PRN (14:41)
[2017-06-09] MEDS ORDERED: ACETAMINOPHEN 325 MG TABLET (FP) PO PRN (14:41)
[2017-06-09] MEDS ORDERED: chlordiazePOXIDE HCL 25 MG CAPSULE PO ONE (15:07)
[2017-06-09] MEDS: NICOTINE 14 MG/24 HOURS TOPICAL PATCH TD SCH (15:22)
--- NOTE | 2017-06-09 16:19 | CONSULT ---
[facility] Psychiatric Consult - Data Date of interview: 06/09/17 Admission source: [facility] Identifying data: Pt. is a 36 year old, single, with no kids. Pt. admitted to for detox from marijuana, cocaine, and alcohol dependence. Substance Abuse History: Marijuana- Reports using everyday approximately $10 per day for 25 years. Last used 06/08/2017. Crack- Reports using crack everyday , approximately $40 per day for 8 years. Last used 06/08/2017. Alcohol- Reports drinking alcohol beginning at age 27. Reports drinking a pint of vodka daily. Last drink was on 06/08/2017. Cigarettes- 5 cigarettes per day beginning at age 24. Medical History: HIV+ Psychiatric History: Pt. reports h/o anxiety and insomnia. Physical/Sexual Abuse/Trauma History: Denies. Mental Status Exam - Mental Status Exam Alert and Oriented to: Time, Place, Person Cognitive Function: Fair Patient Appearance: Well Groomed Mood: Euthymic Affect: Mood Congruent Patient Behavior: Appropriate, Cooperative Speech Pattern: Clear Voice Loudness: Normal Thought Process: Goal Oriented Thought Disorder: Not Present Hallucinations: Denies Suicidal Ideation: Denies Homicidal Ideation: Denies Insight/Judgement: Fair Sleep: Difficulty falling asleep (Will order seroquel 50mg for insomnia. As per chart, patient has been prescribed seroquel in the past.) Appetite: Fair Muscle strength/Tone: Normal Gait/Station: Normal Psychiatric Findings - Problem List ([place] 1, 2,3) (1) Alcohol dependence with uncomplicated withdrawal Current Visit: Yes Status: Acute (2) Cocaine dependence, uncomplicated Current Visit: Yes Status: Acute (3) Cannabis dependence, uncomplicated Current Visit: Yes Status: Chronic (4) Nicotine dependence Current Visit: Yes Status: Chronic Qualifiers: Nicotine product type: cigarettes Substance use status: uncomplicated Qualified Code(s): F17.210 - Nicotine dependence, cigarettes, uncomplicated (5) Alcohol dependence Current Visit: No Status: Acute (6) Cannabis dependence Current Visit: No Status: Acute (7) Cocaine dependence Current Visit: No Status: Acute Qualifiers: (8) Drug-induced mood disorder Current Visit: No Status: Acute (9) Substance induced mood disorder Current Visit: No Status: Acute (10) Substance-induced sleep disorder Current Visit: No Status: Chronic - Initial Treatment Plan Initial Treatment Plan: Psychoeducation provided. Chart reviewed. Pt. complaining of insomnia. As per chart, patient was prescribed 100mg of seroquel on 03/02/2017. Pt. to be started on seroquel 50mg qhs for insomnia beginning tonight. Side effects and benefits of seroquel discussed with patient. Verbal consent given by patient. Will continue to monitor patient.
[2017-06-09 16:29] LABS: MCH 27.4 pg (25.7-33.7); MCHC 33.3 g/dl (32.0-35.9); MEAN CELL VOLUME 82.4 fl (80-96); RDW 15.5 % (11.9-15.9); WHITE BLOOD COUNT 9.4 K/mm3 (4.0-10.0)
[2017-06-09 16:36] LABS: ALBUMIN 3.3 g/dl (3.4-5.0); ALK PHOS 72 U/L (45-117); ANION GAP 5 (8-16); BILIRUBIN,TOTAL 0.4 mg/dL (0.2-1.0); CALCIUM 8.7 mg/dL (8.5-10.1); CO2 31 mmol/L (21-32); CREATININE 1.2 mg/dL (0.7-1.3); GLUCOSE,RANDOM 95 mg/dL (74-106); SGOT/AST 13 U/L (15-37); SGPT/ALT 15 U/L (12-78); TOT PROT 7.4 g/dl (6.4-8.2)
[2017-06-09] MEDS: chlordiazePOXIDE HCL 25 MG CAPSULE PO SCH ×2 (17:19→22:22)
[2017-06-09] MEDS: guaiFENesin/D-METHORPHAN HB 10 ML UNIT-DOSE CUPS PO PRN ×2 (17:20→23:39)
[2017-06-09 20:03] LABS: PLATELET COUNT 324 K/MM3 (134-434)
[2017-06-09 20:04] LABS: MEAN PLT VOLUME 8.6 fl (7.5-11.1)
[2017-06-09] MEDS: THIAMINE HCL 100 MG TABLET (FP) PO SCH (22:22)
[2017-06-09] MEDS: QUEtiapine FUMARATE 50 MG TABLET PO SCH (22:22)
[2017-06-10 02:56] LABS: URINE APPEARANCE CLEAR; URINE BILIRUBIN NEGATIVE (NEGATIVE); URINE BLOOD NEGATIVE (NEGATIVE); URINE COLOR LTYELLOW; URINE GLUCOSE (UA) NEGATIVE (NEGATIVE); URINE KETONE NEGATIVE (NEGATIVE); URINE NITRITE NEGATIVE (NEGATIVE); URINE PROTEIN NEGATIVE (NEGATIVE); URINE UROBILINOGEN NEGATIVE mg/dL (0.2-1.0)
[2017-06-10] MEDS: chlordiazePOXIDE HCL 25 MG CAPSULE PO SCH ×4 (05:32→22:08)
--- NOTE | 2017-06-10 10:15 | EKG ---
Test Reason : Blood Pressure : / mmHG Vent. Rate : 081 BPM Atrial Rate : 081 BPM P-R Int : 158 ms QRS Dur : 072 ms QT Int : 386 ms P-R-T Axes : 071 071 067 degrees QTc Int : 448 ms NORMAL SINUS RHYTHM EARLY REPOLARIZATION WHEN COMPARED WITH ECG OF 13-FEB-2017 14:39, NO SIGNIFICANT CHANGE WAS FOUND Confirmed by MITCHELL KHAN MD ([id number]) on 06/10/2017 10:15:06 AM Referred By: Confirmed By:MITCHELL KHAN MD
[2017-06-10] MEDS: ASPIRIN 81 MG CHEWABLE TABLETS PO SCH (10:51)
[2017-06-10] MEDS: guaiFENesin/D-METHORPHAN HB 10 ML UNIT-DOSE CUPS PO PRN ×2 (10:51→19:35)
[2017-06-10] MEDS: PATIENT'S OWN MEDICATION (NON-FORMULARY) (Estradiol [Estradiol] 2 MG) SL SCH (10:52)
[2017-06-10] MEDS: NICOTINE 14 MG/24 HOURS TOPICAL PATCH TD SCH (10:52)
[2017-06-10] MEDS: FINASTERIDE 5 MG TABLET (FP) PO SCH (10:52)
[2017-06-10] MEDS: SPIRONOLACTONE 25 MG TABLET (FP) PO SCH (10:52)
[2017-06-10] MEDS: ABACAVIR/DOLUTEGRAVIR/LAMIVUDI (TRIUMEQ) TABLET -NF PO SCH (10:52)
[2017-06-10] MEDS: PRENATAL VITAMINS W/ FOLIC ACID TABLET (FP) PO SCH (10:52)
[2017-06-10 11:10] LABS: URINE LEUK ESTERASE 1+ (NEGATIVE)
[2017-06-10 11:11] LABS: URINE RBC 0-3 /hpf (0-3)
[2017-06-10 11:12] LABS: URINE BACTERIA MODERATE /hpf (NEGATIVE)
--- NOTE | 2017-06-10 11:27 | PN ---
[facility] CIWA - CIWA Score Nausea/Vomitin-No Nausea/No Vomiting Muscle Tremors: 3 Anxiety: 4-Mod. Anxious/Guarded Agitation: 4-Moderately Restless Paroxysmal Sweats: 1-Minimal Palms Moist Orientation: 0-Oriented Tacttile Disturbances: 3-Moderate Itch/Numb/Burn Auditory Disturbances: 0-None Visual Disturbances: 0-None Headache: 0-None Present CIWA-Ar Total Score: 15 S Progress Note (SOAP) Subjective: SLIGHT TREMORS,ANXIETY,SWEATS,FATIGUE. Objective: 06/10/17 11:26 Vital Signs Temperature 97.8 F 06/10/17 10:00 Pulse Rate 92 H 06/10/17 10:00 Respiratory Rate 20 06/10/17 10:00 Blood Pressure 133/94 06/10/17 10:00 O2 Sat by Pulse Oximetry (%) Laboratory Last Values WBC 9.4 K/mm3 (4.0-10.0) D 06/09/17 15:00 RBC 4.81 M/mm3 (4.00-5.60) 06/09/17 15:00 Hgb 13.2 GM/dL (11.7-16.9) 06/09/17 15:00 Hct 39.7 % (35.4-49) 06/09/17 15:00 MCV 82.4 fl (80-96) 06/09/17 15:00 MCH 27.4 pg (25.7-33.7) 06/09/17 15:00 MCHC 33.3 g/dl (32.0-35.9) 06/09/17 15:00 RDW 15.5 % (11.9-15.9) 06/09/17 15:00 Plt Count 324 K/MM3 (134-434) 06/09/17 15:00 MPV 8.6 fl (7.5-11.1) 06/09/17 15:00 Manual Slide Review 06/09/17 15:00 Sodium 141 mmol/L (136-145) 06/09/17 15:00 Potassium 4.2 mmol/L (3.5-5.1) 06/09/17 15:00 Chloride 105 mmol/L (98-107) 06/09/17 15:00 Carbon Dioxide 31 mmol/L (21-32) 06/09/17 15:00 Anion Gap 5 (8-16) L 06/09/17 15:00 BUN 13 mg/dL (7-18) 06/09/17 15:00 Creatinine 1.2 mg/dL (0.7-1.3) 06/09/17 15:00 Creat Clearance w eGFR > 60 (>60) 06/09/17 15:00 Random Glucose 95 mg/dL (74-106) 06/09/17 15:00 Calcium 8.7 mg/dL (8.5-10.1) 06/09/17 15:00 Total Bilirubin 0.4 mg/dL (0.2-1.0) 06/09/17 15:00 AST 13 U/L (15-37) L 06/09/17 15:00 ALT 15 U/L (12-78) 06/09/17 15:00 Alkaline Phosphatase 72 U/L (45-117) 06/09/17 15:00 Total Protein 7.4 g/dl (6.4-8.2) 06/09/17 15:00 Albumin 3.3 g/dl (3.4-5.0) L 06/09/17 15:00 Urine Color Ltyellow 06/10/17 00:00 Urine Appearance Clear 06/10/17 00:00 Urine pH 7.0 (5.0-8.0) 06/10/17 00:00 Ur Specific [place] 1.009 (1.001-1.035) 06/10/17 00:00 Urine Protein Negative (NEGATIVE) 06/10/17 00:00 Urine Glucose (UA) Negative (NEGATIVE) 06/10/17 00:00 Urine Ketones Negative (NEGATIVE) 06/10/17 00:00 Urine Blood Negative (NEGATIVE) 06/10/17 00:00 Urine Nitrite Negative (NEGATIVE) 06/10/17 00:00 Urine Bilirubin Negative (NEGATIVE) 06/10/17 00:00 Urine Urobilinogen Negative mg/dL (0.2-1.0) 06/10/17 00:00 Ur Leukocyte Esterase 1+ (NEGATIVE) H 06/10/17 00:00 Urine RBC 0-3 /hpf (0-3) 06/10/17 00:00 Urine WBC 5-10 (0-2) 06/10/17 00:00 Ur Epithelial Cells Few /HPF 06/10/17 00:00 Urine Bacteria Moderate /hpf (NEGATIVE) 06/10/17 00:00 RPR Titer Reactive 1:8 (NONREACTIVE) H D 06/09/17 15:00 T.pallidum Ab (MHA) Previously reactive (NONREACTIVE) 06/09/17 15:00 Assessment: 06/10/17 11:26 WITHDRAWAL SX Plan: CONTINUE DETOX
--- NOTE | 2017-06-10 12:35 | PN ---
[facility] Progress Note Note: PT REPORTS RECENT TREATMENT FOR REACTIVE RPR AND MHA. STATES HE RECEI [place] LAST WEEK. AND WAS DUE FOR NEXT DOSE LAST Tuesday07/06/17 BUT DID NOT GO . DISCUSSED WITH PT WILL GIVE SECOND DOSE TODAY THEN TO RECEIVE THIRD DOSE WITH HIS PMD AFTER DETOX. PT AGREES TO PLAN. BICILLIN DIRECTED
[2017-06-10] MEDS ORDERED: PENICILLIN G BENZATHINE 2,400,000 UNIT/4 ML PFS IM ONE (14:15)
[2017-06-10] MEDS: THIAMINE HCL 100 MG TABLET (FP) PO SCH (22:08)
[2017-06-10] MEDS: QUEtiapine FUMARATE 50 MG TABLET PO SCH (22:09)
[2017-06-11] MEDS: chlordiazePOXIDE HCL 25 MG CAPSULE PO SCH ×2 (06:07→10:10)
[2017-06-11] MEDS: guaiFENesin/D-METHORPHAN HB 10 ML UNIT-DOSE CUPS PO PRN ×2 (08:15→15:31)
[2017-06-11] MEDS: PRENATAL VITAMINS W/ FOLIC ACID TABLET (FP) PO SCH (10:09)
[2017-06-11] MEDS: SPIRONOLACTONE 25 MG TABLET (FP) PO SCH (10:09)
[2017-06-11] MEDS: ABACAVIR/DOLUTEGRAVIR/LAMIVUDI (TRIUMEQ) TABLET -NF PO SCH (10:10)
[2017-06-11] MEDS: PATIENT'S OWN MEDICATION (NON-FORMULARY) (Estradiol [Estradiol] 2 MG) SL SCH (10:10)
[2017-06-11] MEDS: FINASTERIDE 5 MG TABLET (FP) PO SCH (10:10)
[2017-06-11] MEDS: NICOTINE 14 MG/24 HOURS TOPICAL PATCH TD SCH (11:16)
[2017-06-11] MEDS: ASPIRIN 81 MG CHEWABLE TABLETS PO SCH (11:16)
--- NOTE | 2017-06-11 14:11 | PN ---
[facility] CIWA - CIWA Score Nausea/Vomitin-No Nausea/No Vomiting Muscle Tremors: 3 Anxiety: 4-Mod. Anxious/Guarded Agitation: 1-Slight > Activity Paroxysmal Sweats: No Perspiration Orientation: 2-Disoriented Date<2 days Tacttile Disturbances: 2-Mild Itch/Numbness/Burn Auditory Disturbances: 0-None Visual Disturbances: 2-Mild Sensitivity Headache: 0-None Present CIWA-Ar Total Score: 14 S Progress Note (SOAP) Subjective: Fatigue, Anxious, Sweating, Tremors. Objective: PT. A & O X 2 (UNCERTAIN ABOUT DAY / DATE). PT. OBSERVED AMBULATING ON UNIT. NO ACUTE DISTRESS. 06/11/17 14:09 Vital Signs Temperature 98.5 F 06/11/17 13:17 Pulse Rate 83 06/11/17 13:17 Respiratory Rate 18 06/11/17 13:17 Blood Pressure 135/89 06/11/17 13:17 O2 Sat by Pulse Oximetry (%) Laboratory Tests 06/09/17 06/09/17 06/09/17 15:00 15:00 15:00 WBC 9.4 D RBC 4.81 Hgb 13.2 Hct 39.7 MCV 82.4 MCH 27.4 MCHC 33.3 RDW 15.5 Plt Count 324 MPV 8.6 Manual Slide Review Sodium 141 Potassium 4.2 Chloride 105 Carbon Dioxide 31 Anion Gap 5 L BUN 13 Creatinine 1.2 Creat Clearance w eGFR > 60 Random Glucose 95 Calcium 8.7 Total Bilirubin 0.4 AST 13 L ALT 15 Alkaline Phosphatase 72 Total Protein 7.4 Albumin 3.3 L Urine Color Urine Appearance Urine pH Ur Specific [place] Urine Protein Urine Glucose (UA) Urine Ketones Urine Blood Urine Nitrite Urine Bilirubin Urine Urobilinogen Ur Leukocyte Esterase Urine RBC Urine WBC Ur Epithelial Cells Urine Bacteria RPR Titer Reactive 1:8 H D T.pallidum Ab (A) Previously reactive 06/10/17 00:00 WBC RBC Hgb Hct MCV MCH MCHC RDW Plt Count MPV Manual Slide Review Sodium Potassium Chloride Carbon Dioxide Anion Gap BUN Creatinine Creat Clearance w eGFR Random Glucose Calcium Total Bilirubin AST ALT Alkaline Phosphatase Total Protein Albumin Urine Color Ltyellow Urine Appearance Clear Urine pH 7.0 Ur Specific [place] 1.009 Urine Protein Negative Urine Glucose (UA) Negative Urine Ketones Negative Urine Blood Negative Urine Nitrite Negative Urine Bilirubin Negative Urine Urobilinogen Negative Ur Leukocyte Esterase 1+ H Urine RBC 0-3 Urine WBC 5-10 Ur Epithelial Cells Few Urine Bacteria Moderate RPR Titer T.pallidum Ab (A) LABS NOTED. Assessment: 06/11/17 14:10 WITHDRAWAL SYMPTOMS. Plan: CONTINUE DETOX. INCREASE DAILY PO FLUID INTAKE.
[2017-06-11] MEDS: chlordiazePOXIDE 5 MG CAPSULE PO SCH ×2 (17:08→22:37)
[2017-06-11] MEDS: THIAMINE HCL 100 MG TABLET (FP) PO SCH (22:35)
[2017-06-11] MEDS: QUEtiapine FUMARATE 50 MG TABLET PO SCH (22:36)
[2017-06-12] MEDS: chlordiazePOXIDE 5 MG CAPSULE PO SCH ×2 (05:53→10:24)
[2017-06-12] MEDS: guaiFENesin/D-METHORPHAN HB 10 ML UNIT-DOSE CUPS PO PRN ×2 (09:03→17:57)
[2017-06-12] MEDS ORDERED: PENICILLIN G BENZATHINE 2,400,000 UNIT/4 ML PFS IM ONE (10:00)
[2017-06-12] MEDS: PRENATAL VITAMINS W/ FOLIC ACID TABLET (FP) PO SCH (10:24)
[2017-06-12] MEDS: ASPIRIN 81 MG CHEWABLE TABLETS PO SCH (10:25)
[2017-06-12] MEDS: NICOTINE 14 MG/24 HOURS TOPICAL PATCH TD SCH (10:25)
[2017-06-12] MEDS: SPIRONOLACTONE 25 MG TABLET (FP) PO SCH (10:25)
[2017-06-12] MEDS: FINASTERIDE 5 MG TABLET (FP) PO SCH (10:26)
[2017-06-12] MEDS: ABACAVIR/DOLUTEGRAVIR/LAMIVUDI (TRIUMEQ) TABLET -NF PO SCH (10:27)
--- NOTE | 2017-06-12 14:12 | PN ---
BHS Progress Note (SOAP) Subjective: Sweating, anxious, restless, interrupted sleep Objective: 06/12/17 14:11 Last Vital Signs Temp Pulse Resp BP Pulse Ox 97.1 F L 83 18 140/91 06/12/17 13:11 06/12/17 13:11 06/12/17 13:11 06/12/17 13:11 Laboratory Tests 06/09/17 06/09/17 06/09/17 15:00 15:00 15:00 WBC 9.4 D RBC 4.81 Hgb 13.2 Hct 39.7 MCV 82.4 MCH 27.4 MCHC 33.3 RDW 15.5 Plt Count 324 MPV 8.6 Manual Slide Review Sodium 141 Potassium 4.2 Chloride 105 Carbon Dioxide 31 Anion Gap 5 L BUN 13 Creatinine 1.2 Creat Clearance w eGFR > 60 Random Glucose 95 Calcium 8.7 Total Bilirubin 0.4 AST 13 L ALT 15 Alkaline Phosphatase 72 Total Protein 7.4 Albumin 3.3 L Urine Color Urine Appearance Urine pH Ur Specific [place] Urine Protein Urine Glucose (UA) Urine Ketones Urine Blood Urine Nitrite Urine Bilirubin Urine Urobilinogen Ur Leukocyte Esterase Urine RBC Urine WBC Ur Epithelial Cells Urine Bacteria RPR Titer Reactive 1:8 H D T.pallidum Ab (MHA) Previously reactive 06/10/17 00:00 WBC RBC Hgb Hct MCV MCH MCHC RDW Plt Count MPV Manual Slide Review Sodium Potassium Chloride Carbon Dioxide Anion Gap BUN Creatinine Creat Clearance w eGFR Random Glucose Calcium Total Bilirubin AST ALT Alkaline Phosphatase Total Protein Albumin Urine Color Ltyellow Urine Appearance Clear Urine pH 7.0 Ur Specific [place] 1.009 Urine Protein Negative Urine Glucose (UA) Negative Urine Ketones Negative Urine Blood Negative Urine Nitrite Negative Urine Bilirubin Negative Urine Urobilinogen Negative Ur Leukocyte Esterase 1+ H Urine RBC 0-3 Urine WBC 5-10 Ur Epithelial Cells Few Urine Bacteria Moderate RPR Titer T.pallidum Ab (MHA) Labs noted Assessment: 06/12/17 14:11 Withdrawal symptoms Plan: Continue detox
[2017-06-12] MEDS: chlordiazePOXIDE HCL 10 MG CAPSULE PO SCH ×2 (17:57→22:43)
[2017-06-12] MEDS ORDERED: PATIENT'S OWN MEDICATION (NON-FORMULARY) (Estradiol [Estradiol] 2 MG) SL SCH (22:00)
[2017-06-12] MEDS: THIAMINE HCL 100 MG TABLET (FP) PO SCH (22:42)
[2017-06-12] MEDS: QUEtiapine FUMARATE 50 MG TABLET PO SCH (22:43)
[2017-06-13] MEDS: chlordiazePOXIDE HCL 10 MG CAPSULE PO SCH ×2 (05:29→10:05)
[2017-06-13] MEDS: PATIENT'S OWN MEDICATION (NON-FORMULARY) (Estradiol [Estradiol] 2 MG) SL SCH ×2 (09:27→10:07)
[2017-06-13] MEDS: ASPIRIN 81 MG CHEWABLE TABLETS PO SCH ×2 (09:27→10:05)
[2017-06-13] MEDS: NICOTINE 14 MG/24 HOURS TOPICAL PATCH TD SCH ×2 (09:27→10:07)
[2017-06-13] MEDS: PRENATAL VITAMINS W/ FOLIC ACID TABLET (FP) PO SCH ×2 (09:27→10:05)
[2017-06-13] MEDS: SPIRONOLACTONE 25 MG TABLET (FP) PO SCH ×2 (09:27→10:05)
[2017-06-13] MEDS: FINASTERIDE 5 MG TABLET (FP) PO SCH ×2 (09:27→10:05)
[2017-06-13] MEDS: ABACAVIR/DOLUTEGRAVIR/LAMIVUDI (TRIUMEQ) TABLET -NF PO SCH ×2 (09:27→10:05)
[2017-06-13 09:49] VITALS: BP 130/88; PULSE 89; TEMP 96.1
[2017-06-13] MEDS ORDERED: PENICILLIN G BENZATHINE 2,400,000 UNIT/4 ML PFS IM ONE (10:00)
--- NOTE | 2017-06-13 14:09 | DS ---
[facility] Detox Discharge Summary Admission Date: 06/09/17 Discharge Date: 06/13/17 - History Present History: Alcohol Dependence, Cannabis Dependence, Cocaine Dependence Additional Comments: [facility] PATIENT WAS DISCHARGED FROM DETOX UNIT IN STABLE MEDICAL CONDITION. Pertinent Past History: HT, Depression, HIV, Nicotine Dependence. - Physical Exam Results Vital Signs: Vital Signs Temperature 96.1 F L 06/13/17 09:49 Pulse Rate 89 06/13/17 09:49 Respiratory Rate 18 06/13/17 09:49 Blood Pressure 130/88 06/13/17 09:49 O2 Sat by Pulse Oximetry (%) Pertinent Admission Physical Exam Findings: WITHDRAWAL SYMPTOMS. Laboratory Tests 06/09/17 06/09/17 06/09/17 15:00 15:00 15:00 WBC 9.4 D RBC 4.81 Hgb 13.2 Hct 39.7 MCV 82.4 MCH 27.4 MCHC 33.3 RDW 15.5 Plt Count 324 MPV 8.6 Manual Slide Review Sodium 141 Potassium 4.2 Chloride 105 Carbon Dioxide 31 Anion Gap 5 L BUN 13 Creatinine 1.2 Creat Clearance w eGFR > 60 Random Glucose 95 Calcium 8.7 Total Bilirubin 0.4 AST 13 L ALT 15 Alkaline Phosphatase 72 Total Protein 7.4 Albumin 3.3 L Urine Color Urine Appearance Urine pH Ur Specific [place] Urine Protein Urine Glucose (UA) Urine Ketones Urine Blood Urine Nitrite Urine Bilirubin Urine Urobilinogen Ur Leukocyte Esterase Urine RBC Urine WBC Ur Epithelial Cells Urine Bacteria RPR Titer Reactive 1:8 H D T.pallidum Ab (MHA) Previously reactive 06/10/17 00:00 WBC RBC Hgb Hct MCV MCH MCHC RDW Plt Count MPV Manual Slide Review Sodium Potassium Chloride Carbon Dioxide Anion Gap BUN Creatinine Creat Clearance w eGFR Random Glucose Calcium Total Bilirubin AST ALT Alkaline Phosphatase Total Protein Albumin Urine Color Ltyellow Urine Appearance Clear Urine pH 7.0 Ur Specific [place] 1.009 Urine Protein Negative Urine Glucose (UA) Negative Urine Ketones Negative Urine Blood Negative Urine Nitrite Negative Urine Bilirubin Negative Urine Urobilinogen Negative Ur Leukocyte Esterase 1+ H Urine RBC 0-3 Urine WBC 5-10 Ur Epithelial Cells Few Urine Bacteria Moderate RPR Titer T.pallidum Ab (MHA) LABS NOTED. - Treatment Hospital Course: Detox Protocol Followed, Detoxed Safely, Responded well, Discharged Condition Good, Rehab Referral Accepted Patient has Accepted a Rehab Referral to: [facility]. - Medication Discharge Medications: Ambulatory Orders Aspirin [ASA -] 81 mg PO DAILY 12/22/15 Quetiapine Fumarate [Seroquel -] 50 mg PO HS #30 tablet 02/14/17 Darunavir Ethanolate [Prezista] 800 mg PO DAILY #30 tab 03/02/17 Emtricitabine/Tenofovir [Truvada -] 1 tab PO DAILY #30 tab 03/02/17 Quetiapine Fumarate [Seroquel -] 100 mg PO HS #30 tab 03/02/17 Abacavir/Dolutegravir/Lamivudi [Triumeq Tablet] 1 each PO DAILY 06/09/17 Estradiol 2 mg SL DAILY 06/09/17 Finasteride [Proscar -] 5 mg PO DAILY 06/09/17 Spironolactone [Aldactone] 25 mg PO DAILY 06/09/17 - Diagnosis (1) History of hypertension Status: Suspected (2) Alcohol dependence with uncomplicated withdrawal Status: Acute (3) Cannabis dependence, uncomplicated Status: Acute (4) Cocaine dependence, uncomplicated Status: Acute (5) HIV (human immunodeficiency virus infection) Status: Chronic (6) Nicotine dependence Status: Chronic Qualifiers: Nicotine product type: cigarettes Substance use status: uncomplicated Qualified Code(s): F17.210 - Nicotine dependence, cigarettes, uncomplicated (7) Depression (emotion) Status: Chronic Qualifiers: Depression Type: unspecified Qualified Code(s): F32.9 - Major depressive disorder, single episode, unspecified (8) Substance-induced sleep disorder Status: Chronic (9) Drug-induced mood disorder Status: Suspected (10) Substance induced mood disorder Status: Suspected - AMA Did Patient Leave Against Medical Advice: No
== END 2017-06-13 12:13 | disposition other institution (70) | DRG 774 ==
LOC: YASAS 09:03 → Y3N 12:09
PROVIDERS: ADMIT Internal Medicine; ATTEND Internal Medicine
PROC: HZ2ZZZZ Detoxification Services for Substance Abuse Treatment (ICD-10-PCS; principal; 2017-06-09)
DX: F10.230 Alcohol dependence with withdrawal, uncomplicated (principal); F14.20 Cocaine dependence, uncomplicated; F12.20 Cannabis dependence, uncomplicated; F17.210 Nicotine dependence, cigarettes, uncomplicated; F19.24 Other psychoactive substance dependence with psychoactive substance-induced mood disorder; F41.9 Anxiety disorder, unspecified; G47.00 Insomnia, unspecified; Z21 Asymptomatic human immunodeficiency virus [HIV] infection status; I10 Essential (primary) hypertension
CPT/HCPCS: 36415; 80053; 81003; 81015; 85027; 86593; 86780; 93005; 93010

== ENCOUNTER 2017-06-13 12:33 | Inpatient (IN) | payer OTHER ==
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
[2017-06-13] MEDS ORDERED: MAGNESIUM HYDROX 2400MG/30ML ORAL SUSPENSION 30 ML CUP PO PRN (15:44)
[2017-06-13] MEDS ORDERED: hydrOXYzine PAMOATE 50 MG CAPSULE (FP) PO PRN (15:44)
[2017-06-13] MEDS ORDERED: NICOTINE POLACRILEX 4 MG GUM BUC PRN (15:44)
[2017-06-13] MEDS ORDERED: MAG HYDROX/AL HYDROX/SIMETH 30 ML UNIT-DOSE CUP PO PRN (15:44)
[2017-06-13] MEDS ORDERED: ACETAMINOPHEN 325 MG TABLET (FP) PO PRN (15:44)
[2017-06-13] MEDS ORDERED: MENTHOL/PHENOL 1 EACH UD MM PRN (15:44)
[2017-06-13] MEDS ORDERED: P-EPHED 60MG/TRIPROLIDI 2.5MG TABLET PO PRN (15:44)
[2017-06-13] MEDS ORDERED: LOPERAMIDE HCL 2 MG CAPSULE PO PRN (15:44)
[2017-06-13] MEDS ORDERED: MAGNESIUM CITRATE 300 ML BOTTLE PO PRN (15:44)
--- NOTE | 2017-06-13 16:33 | HP ---
[facility] Assess/Revision - Admission History Admitted to Rehab from: [facility] Date of Admission to Rehab: 06/13/17 - Findings Detox History & Physical reviewed: Yes Concur with findings: Yes Comments/Additional Findings: transferred from detox to rehab admission as per protocol Inpatient Rehab Admission - Initial Determination Are CD services needed?: Yes Free of communicable disease: Yes Not in need of hospitalization: Yes - Rehab Admission Criteria Previous failed treatment: Yes Poor recovery environment: Yes Comorbidities: Yes Lacks judgement: No Patient is meeting Inpatient Rehab admission criteria:: Yes
[2017-06-13] MEDS: guaiFENesin/D-METHORPHAN HB 10 ML UNIT-DOSE CUPS PO PRN (17:32)
[2017-06-13] MEDS: PATIENT'S OWN MEDICATION (NON-FORMULARY) (Estradiol [Estradiol] 2 MG) SL SCH (21:37)
[2017-06-13] MEDS: THIAMINE HCL 100 MG TABLET (FP) PO SCH (21:39)
[2017-06-13] MEDS: QUEtiapine FUMARATE 50 MG TABLET PO SCH (21:39)
[2017-06-13] MEDS: FINASTERIDE 5 MG TABLET (FP) PO SCH (21:40)
[2017-06-14] MEDS: ABACAVIR/DOLUTEGRAVIR/LAMIVUDI (TRIUMEQ) TABLET -NF PO SCH (07:08)
[2017-06-14] MEDS: ASPIRIN 81 MG CHEWABLE TABLETS PO SCH (10:39)
[2017-06-14] MEDS: NICOTINE 21 MG/24 HOURS TOPICAL PATCH TD SCH (10:39)
[2017-06-14] MEDS: SPIRONOLACTONE 25 MG TABLET (FP) PO SCH (10:39)
[2017-06-14] MEDS: PRENATAL VITAMINS W/ FOLIC ACID TABLET (FP) PO SCH (10:39)
[2017-06-14] MEDS: THIAMINE HCL 100 MG TABLET (FP) PO SCH (21:43)
[2017-06-14] MEDS: FINASTERIDE 5 MG TABLET (FP) PO SCH (21:44)
[2017-06-14] MEDS: QUEtiapine FUMARATE 50 MG TABLET PO SCH (21:44)
[2017-06-14] MEDS: PATIENT'S OWN MEDICATION (NON-FORMULARY) (Estradiol [Estradiol] 2 MG) SL SCH (21:44)
[2017-06-15] MEDS: ABACAVIR/DOLUTEGRAVIR/LAMIVUDI (TRIUMEQ) TABLET -NF PO SCH (07:17)
[2017-06-15] MEDS: ASPIRIN 81 MG CHEWABLE TABLETS PO SCH (10:34)
[2017-06-15] MEDS: SPIRONOLACTONE 25 MG TABLET (FP) PO SCH (10:34)
[2017-06-15] MEDS: PRENATAL VITAMINS W/ FOLIC ACID TABLET (FP) PO SCH (10:34)
[2017-06-15] MEDS: NICOTINE 21 MG/24 HOURS TOPICAL PATCH TD SCH (10:34)
[2017-06-15] MEDS: guaiFENesin/D-METHORPHAN HB 10 ML UNIT-DOSE CUPS PO PRN ×2 (11:23→17:52)
[2017-06-15] MEDS: QUEtiapine FUMARATE 50 MG TABLET PO SCH (21:48)
[2017-06-15] MEDS: FINASTERIDE 5 MG TABLET (FP) PO SCH (21:48)
[2017-06-15] MEDS: PATIENT'S OWN MEDICATION (NON-FORMULARY) (Estradiol [Estradiol] 2 MG) SL SCH (21:48)
[2017-06-15] MEDS: THIAMINE HCL 100 MG TABLET (FP) PO SCH (21:48)
[2017-06-16] MEDS: ABACAVIR/DOLUTEGRAVIR/LAMIVUDI (TRIUMEQ) TABLET -NF PO SCH (07:23)
[2017-06-16] MEDS: PRENATAL VITAMINS W/ FOLIC ACID TABLET (FP) PO SCH (10:33)
[2017-06-16] MEDS: SPIRONOLACTONE 25 MG TABLET (FP) PO SCH (10:33)
[2017-06-16] MEDS: NICOTINE 21 MG/24 HOURS TOPICAL PATCH TD SCH (10:33)
[2017-06-16] MEDS: ASPIRIN 81 MG CHEWABLE TABLETS PO SCH (10:33)
[2017-06-16] MEDS: FINASTERIDE 5 MG TABLET (FP) PO SCH (21:08)
[2017-06-16] MEDS: THIAMINE HCL 100 MG TABLET (FP) PO SCH (21:08)
[2017-06-16] MEDS: PATIENT'S OWN MEDICATION (NON-FORMULARY) (Estradiol [Estradiol] 2 MG) SL SCH (21:09)
[2017-06-16] MEDS: QUEtiapine FUMARATE 50 MG TABLET PO SCH (21:09)
[2017-06-17] MEDS: ABACAVIR/DOLUTEGRAVIR/LAMIVUDI (TRIUMEQ) TABLET -NF PO SCH (07:02)
[2017-06-17] MEDS: SPIRONOLACTONE 25 MG TABLET (FP) PO SCH (10:12)
[2017-06-17] MEDS: NICOTINE 21 MG/24 HOURS TOPICAL PATCH TD SCH (10:12)
[2017-06-17] MEDS: ASPIRIN 81 MG CHEWABLE TABLETS PO SCH (10:12)
[2017-06-17] MEDS: PRENATAL VITAMINS W/ FOLIC ACID TABLET (FP) PO SCH (10:12)
[2017-06-17] MEDS: guaiFENesin/D-METHORPHAN HB 10 ML UNIT-DOSE CUPS PO PRN (16:52)
[2017-06-17] MEDS: QUEtiapine FUMARATE 50 MG TABLET PO SCH (21:27)
[2017-06-17] MEDS: THIAMINE HCL 100 MG TABLET (FP) PO SCH (21:27)
[2017-06-17] MEDS: PATIENT'S OWN MEDICATION (NON-FORMULARY) (Estradiol [Estradiol] 2 MG) SL SCH (21:27)
[2017-06-17] MEDS: FINASTERIDE 5 MG TABLET (FP) PO SCH (21:28)
[2017-06-18] MEDS: ABACAVIR/DOLUTEGRAVIR/LAMIVUDI (TRIUMEQ) TABLET -NF PO SCH (07:04)
[2017-06-18] MEDS: ASPIRIN 81 MG CHEWABLE TABLETS PO SCH (10:05)
[2017-06-18] MEDS: PRENATAL VITAMINS W/ FOLIC ACID TABLET (FP) PO SCH (10:05)
[2017-06-18] MEDS: SPIRONOLACTONE 25 MG TABLET (FP) PO SCH (10:05)
[2017-06-18] MEDS: NICOTINE 21 MG/24 HOURS TOPICAL PATCH TD SCH (10:05)
[2017-06-18] MEDS: THIAMINE HCL 100 MG TABLET (FP) PO SCH (21:29)
[2017-06-18] MEDS: FINASTERIDE 5 MG TABLET (FP) PO SCH (21:30)
[2017-06-18] MEDS: PATIENT'S OWN MEDICATION (NON-FORMULARY) (Estradiol [Estradiol] 2 MG) SL SCH (21:30)
[2017-06-18] MEDS: QUEtiapine FUMARATE 50 MG TABLET PO SCH (21:31)
[2017-06-19] MEDS: ABACAVIR/DOLUTEGRAVIR/LAMIVUDI (TRIUMEQ) TABLET -NF PO SCH (07:20)
[2017-06-19] MEDS: ASPIRIN 81 MG CHEWABLE TABLETS PO SCH (10:15)
[2017-06-19] MEDS: SPIRONOLACTONE 25 MG TABLET (FP) PO SCH (10:15)
[2017-06-19] MEDS: PRENATAL VITAMINS W/ FOLIC ACID TABLET (FP) PO SCH (10:15)
[2017-06-19] MEDS: NICOTINE 21 MG/24 HOURS TOPICAL PATCH TD SCH (10:16)
[2017-06-19] MEDS: THIAMINE HCL 100 MG TABLET (FP) PO SCH (21:19)
[2017-06-19] MEDS: PATIENT'S OWN MEDICATION (NON-FORMULARY) (Estradiol [Estradiol] 2 MG) SL SCH (21:20)
[2017-06-19] MEDS: FINASTERIDE 5 MG TABLET (FP) PO SCH (21:20)
[2017-06-19] MEDS: QUEtiapine FUMARATE 50 MG TABLET PO SCH (21:20)
[2017-06-20] MEDS: ABACAVIR/DOLUTEGRAVIR/LAMIVUDI (TRIUMEQ) TABLET -NF PO SCH (07:02)
[2017-06-20] MEDS: PRENATAL VITAMINS W/ FOLIC ACID TABLET (FP) PO SCH (10:11)
[2017-06-20] MEDS: ASPIRIN 81 MG CHEWABLE TABLETS PO SCH (10:11)
[2017-06-20] MEDS: SPIRONOLACTONE 25 MG TABLET (FP) PO SCH (10:11)
[2017-06-20] MEDS: NICOTINE 21 MG/24 HOURS TOPICAL PATCH TD SCH (10:12)
[2017-06-20] MEDS: IBUPROFEN 400 MG TABLET (FP) PO PRN ×2 (12:08→21:44)
--- NOTE | 2017-06-20 13:26 | PN ---
Psychiatric Progress Note Vital Signs: Vital Signs Period Temp Pulse Resp BP Sys/Vanessa Pulse Ox Last 24 Hr 98.0 F 67-82 16-20 120-134/79-83 Date of Session: 06/20/17 Chief Complaint:: "mood swings" HPI: Patient is adresssing alcohol, cannabis, nicotine dependence comorbid Substance induced mood and sleep disorder. ROS: WNL. Current Medications: Active Medications Generic Name Dose Route Start Last Admin Trade Name Freq PRN Reason Stop Dose Admin Abacavir/Dolutegravir/Lamivudine 1 each 06/14/17 08:00 06/20/17 07:02 Triumeq (Non-Formulary) PO 1 each DAILY@0800 HAN Administration Acetaminophen 650 mg 06/13/17 15:44 Tylenol - PO Q4H PRN FEVER OR PAIN Al Hydroxide/Mg Hydroxide 30 ml 06/13/17 15:44 Mylanta Oral Suspension - PO Q6H PRN DYSPEPSIA Aspirin 81 mg 06/14/17 10:00 06/20/17 10:11 Asa - PO 81 mg DAILY HAN Administration Eucalyptus/Menthol/Phenol/Sorbitol 1 each 06/13/17 15:44 Cepastat Lozenge - MM Q4H PRN SORE THROAT Finasteride 5 mg 06/13/17 22:00 06/19/17 21:20 Proscar - PO 5 mg HS HAN Administration Guaifenesin 10 ml 06/13/17 15:44 06/17/17 16:52 Robitussin Dm - PO 10 ml Q6H PRN Administration COUGH Hydroxyzine Pamoate 50 mg 06/13/17 15:44 06/20/17 12:08 Vistaril - PO 50 mg Q4H PRN Administration AGITATION Ibuprofen 400 mg 06/13/17 15:44 06/20/17 12:08 Motrin - PO 400 mg Q6H PRN Administration PAIN Loperamide HCl 4 mg 06/13/17 15:44 Imodium - PO Q6H PRN DIARRHEA Magnesium Citrate 300 ml 06/13/17 15:44 Citroma - PO Q48H PRN CONSTIPATION Magnesium Hydroxide 30 ml 06/13/17 15:44 Milk Of Magnesia - PO DAILY PRN CONSTIPATION Nicotine 21 mg 06/14/17 10:00 06/20/17 10:12 Nicoderm Patch - TD 21 mg DAILY HAN Administration Nicotine Polacrilex 4 mg 06/13/17 15:44 06/14/17 10:39 Nicorette Gum - BUC 4 mg Q2H PRN Administration NICOTINE REPLACEMENT RX Non-Formulary Medication 2 mg 06/13/17 22:00 06/19/17 21:20 Estradiol [Estradiol] SL 2 mg HS HAN Administration Multivit/Folic Acid/Iron 1 tab 06/14/17 10:00 06/20/17 10:11 Vitamins (Sjr) - PO 1 tab DAILY HAN Administration Pseudoephedrine/Triprolidine 1 combo 06/13/17 15:44 Actifed - PO TID PRN NASAL CONGESTION Quetiapine Fumarate 150 mg 06/20/17 13:14 Seroquel - PO HS HAN Spironolactone 25 mg 06/14/17 10:00 06/20/17 10:11 Aldactone - PO 25 mg DAILY HAN Administration Thiamine HCl 100 mg 06/13/17 22:00 06/19/17 21:19 Vitamin B1 - PO 100 mg HS HAN Administration Medication(s) Change(s): increase Seroquel 150 mg po hs Current Side Effect: No Lab tests ordered: No Lab tests reviewed: Yes Provider note:: Patient reports has been feeling "long", unable to sleep and next day he is irritable. Reports unable to go to the groups today because feels tired, fatiqued and irritable and need some rest today, since uneable to focus and participate in group discussion. Reviewed medications with the patient will increase Seroquel 150 mg po hs, continue to monitor progress. Total face to face time:: 15 Mental Status Exam - Mental Status Exam Alert and Oriented to: Time, Place, Person Cognitive Function: Grossly Intact Patient Appearance: Well Groomed Mood: Anxious, Irritable Affect: Mood Congruent Patient Behavior: Cooperative Speech Pattern: Clear Voice Loudness: Normal Thought Process: Goal Oriented Hallucinations: Denies Suicidal Ideation: Denies Homicidal Ideation: Denies Insight/Judgement: Fair Sleep: Poorly, Difficulty falling asleep Appetite: Fair Muscle strength/Tone: Normal Gait/Station: Normal Psychiatric Treatment Plan - Problem List (1) Alcohol dependence Current Visit: Yes (2) Cocaine dependence Current Visit: Yes (3) Cannabis dependence Current Visit: Yes (4) Nicotine dependence Current Visit: No Qualifiers: Nicotine product type: cigarettes Substance use status: uncomplicated Qualified Code(s): F17.210 - Nicotine dependence, cigarettes, uncomplicated (5) Substance-induced sleep disorder Current Visit: No (6) Substance induced mood disorder Current Visit: No
[2017-06-20] MEDS: LIDOCAINE 5% TOPICAL PATCH TP SCH (15:53)
[2017-06-20] MEDS: THIAMINE HCL 100 MG TABLET (FP) PO SCH (21:42)
[2017-06-20] MEDS: QUEtiapine FUMARATE 50 MG TABLET PO SCH (21:42)
[2017-06-20] MEDS: PATIENT'S OWN MEDICATION (NON-FORMULARY) (Estradiol [Estradiol] 2 MG) SL SCH (21:43)
[2017-06-20] MEDS: FINASTERIDE 5 MG TABLET (FP) PO SCH (21:43)
[2017-06-20] MEDS: LIDOCAINE PATCH REMOVAL MC SCH (23:18)
[2017-06-21] MEDS: ABACAVIR/DOLUTEGRAVIR/LAMIVUDI (TRIUMEQ) TABLET -NF PO SCH (07:09)
[2017-06-21] MEDS: ASPIRIN 81 MG CHEWABLE TABLETS PO SCH (10:09)
[2017-06-21] MEDS: PRENATAL VITAMINS W/ FOLIC ACID TABLET (FP) PO SCH (10:09)
[2017-06-21] MEDS: LIDOCAINE 5% TOPICAL PATCH TP SCH (10:09)
[2017-06-21] MEDS: NICOTINE 21 MG/24 HOURS TOPICAL PATCH TD SCH (10:09)
[2017-06-21] MEDS: IBUPROFEN 400 MG TABLET (FP) PO PRN (10:10)
[2017-06-21] MEDS: SPIRONOLACTONE 25 MG TABLET (FP) PO SCH (11:24)
[2017-06-21] MEDS: LIDOCAINE PATCH REMOVAL MC SCH (21:40)
[2017-06-21] MEDS: THIAMINE HCL 100 MG TABLET (FP) PO SCH (21:41)
[2017-06-21] MEDS: QUEtiapine FUMARATE 50 MG TABLET PO SCH (21:41)
[2017-06-21] MEDS: PATIENT'S OWN MEDICATION (NON-FORMULARY) (Estradiol [Estradiol] 2 MG) SL SCH (21:41)
[2017-06-21] MEDS: FINASTERIDE 5 MG TABLET (FP) PO SCH (21:42)
[2017-06-22 06:45] VITALS: TEMP 97.2
[2017-06-22] MEDS: ABACAVIR/DOLUTEGRAVIR/LAMIVUDI (TRIUMEQ) TABLET -NF PO SCH (07:18)
[2017-06-22] MEDS: ASPIRIN 81 MG CHEWABLE TABLETS PO SCH (10:09)
[2017-06-22] MEDS: PRENATAL VITAMINS W/ FOLIC ACID TABLET (FP) PO SCH (10:09)
[2017-06-22] MEDS: LIDOCAINE 5% TOPICAL PATCH TP SCH (10:10)
[2017-06-22] MEDS: NICOTINE 21 MG/24 HOURS TOPICAL PATCH TD SCH (10:10)
[2017-06-22] MEDS: SPIRONOLACTONE 25 MG TABLET (FP) PO SCH (10:10)
[2017-06-22 11:58] VITALS: BP 126/77; PULSE 68
--- NOTE | 2017-06-22 19:47 | PN ---
BHS Progress Note Note: RECEIVED NURSE CALL THAT THE PATIENT IS BEEN EARLY DISCHARGED TODAY ENCOURAGE INFORM ATTENDING
--- NOTE | 2017-06-23 09:33 | PN ---
S Progress Note Note: patient signed AMA on 06/22/17, please see medical staff notes.
== END 2017-06-22 19:35 | disposition left against medical advice (07) | DRG 770 ==
LOC: YASAS 12:33 → Y5N 12:39
PROVIDERS: ADMIT Psychiatry & Neurology Psychiatry; ATTEND Psychiatry & Neurology Psychiatry
PROC: HZ2ZZZZ Detoxification Services for Substance Abuse Treatment (ICD-10-PCS; principal; 2017-06-13)
DX: F10.230 Alcohol dependence with withdrawal, uncomplicated (principal); F14.20 Cocaine dependence, uncomplicated; F12.20 Cannabis dependence, uncomplicated; F17.210 Nicotine dependence, cigarettes, uncomplicated; F19.282 Other psychoactive substance dependence with psychoactive substance-induced sleep disorder; F19.24 Other psychoactive substance dependence with psychoactive substance-induced mood disorder

== ENCOUNTER 2017-11-30 11:31 | Inpatient (IN) | payer OTHER ==
[2017-11-30 12:04] VITALS: BMI 23.7
--- NOTE | 2017-11-30 13:54 | HP ---
CIWA Score - CIWA Score Nausea/Vomitin Muscle Tremors: 3 Anxiety: 3 Agitation: 2 Paroxysmal Sweats: 1-Minimal Palms Moist Orientation: 0-Oriented Tacttile Disturbances: 1-Very Mild Itch/Numbness Auditory Disturbances: 1-Very Mild Visual Disturbances: 0-None Headache: 2-Mild CIWA-Ar Total Score: 16 Admission ROS BHS - HPI Chief Complaint: i need help to stop drinking alcohol and using crack Allergies/Adverse Reactions: Allergies Allergy/AdvReac Type Severity Reaction Status Date / Time No Known Allergies Allergy Verified 11/30/17 13:48 History of Present Illness: this 37 years old male with alcohol and crack dependence,seeking detox, withdrawal symptom,last detox 06/09/17 to 06/13/17 hiv positive since 1999 weight loss nicotine dependence longest period of sobriety 1 year transgender from male to female Exam Limitations: No Limitations - Ebola screening Have you traveled outside of the country in the last 21 days: No Have you been sick,other than usual withdrawal symptoms: No - Review of Systems Constitutional: Diaphoresis, Loss of Appetite, Malaise, Night Sweats, Changes in sleep, Weakness, Unintentional Wgt. Loss EENT: reports: Nose Congestion Respiratory: reports: No Symptoms reported Cardiac: reports: No Symptoms Reported GI: reports: Nausea, Poor Appetite, Abdominal cramping : reports: No Symptoms Reported Musculoskeletal: reports: Back Pain, Muscle Pain Integumentary: reports: Dryness Neuro: reports: Headache, Tremors Endocrine: reports: No Symptoms Reported Hematology: reports: No Symptoms Reported Psychiatric: reports: No Sypmtoms Reported, Judgement Intact, Mood/Affect Appropiate, Orientated x3 Patient History - Patient Medical History Hx Anemia: No Hx Asthma: No Hx Chronic Obstructive Pulmonary Disease (COPD): No Hx Cancer: No Hx Cardiac Disorders: No Hx Congestive Heart Failure: No Hx Hypertension: No Hx Hypercholesterolemia: No Hx Pacemaker: No HX Cerebrovascular Accident: No Hx Seizures: No Hx Dementia: No Hx Diabetes: No Hx Gastrointestinal Disorders: No Hx Liver Disease: No Hx Genitourinary Disorders: No Hx Sexually Transmitted Disorders: No (Syphilis) Hx Renal Disease (ESRD): No Hx Thyroid Disease: No Hx Human Immunodeficiency Virus (HIV): Yes (SINCE 1999;Currently takes TRIUMEQ.) Hx Hepatitis C: No (Last Tested: 02/2017: NEGATIVE.) Hx Depression: Yes Hx Suicide Attempt: No Hx Bipolar Disorder: No Hx Schizophrenia: No Other Medical History: anxiety,depression,insomnia - Patient Surgical History Past Surgical History: No Hx Neurologic Surgery: No Hx Cataract Extraction: No Hx Cardiac Surgery: No Hx Lung Surgery: No Hx Breast Surgery: No Hx Breast Biopsy: No Hx Abdominal Surgery: No Hx Appendectomy: No Hx Cholecystectomy: No Hx Genitourinary Surgery: No Hx Section: No Hx Orthopedic Surgery: No Anesthesia Reaction: No - PPD History Previous Implant?: Yes Documented Results: Negative w/proof Date: 02/15/17 Results: 0mm PPD to be Administered?: No - Smoking Cessation Smoking history: Current every day smoker Have you smoked in the past 12 months: Yes Aproximately how many cigarettes per day: 8 Cigars Per Day: 0 Hx Chewing Tobacco Use: No Initiated information on smoking cessation: Yes 'Breaking Loose' booklet given: 11/30/17 - Substance & Tx. History Hx Alcohol Use: Yes Hx Substance Use: Yes Substance Use Type: Alcohol, Cocaine Hx Substance Use Treatment: Yes (vasyl hernandez [id number] completed) - Substances Abused Alcohol Route: Oral Frequency: Daily Amount used: 3 22 OZ BEERS Age of first use: 20 Date of Last Use: 11/30/17 Cocaine Route: Smoking Frequency: Daily Amount used: $60 Age of first use: 27 Date of Last Use: 11/29/17 Family Disease History - Family Disease History Family Disease History: Heart Disease: Mother (, Liver Failure.,alcohol) , Other: Mother Admission Physical Exam BHS - Vital Signs Vital Signs: Vital Signs - 24 hr 11/30/17 12:01 Temperature 97.4 F L Pulse Rate 83 Respiratory 20 Rate Blood Pressure 148/90 - Physical General Appearance: Yes: Moderate Distress, Tremorous, Irritable, Sweating, Anxious HEENTM: Yes: Normal ENT Inspection, NIKKI, Pharynx Normal Respiratory: Yes: Lungs Clear, Normal Breath Sounds, No Respiratory Distress Neck: Yes: Within Normal Limits, Supple, Trachea in good position Breast: Yes: Within Normal Limits Cardiology: Yes: Within Normal Limits, Regular Rhythm, Regular Rate, S1, S2 Abdominal: Yes: Within Normal Limits, Normal Bowel Sounds, Non Tender, Flat, Soft Genitourinary: Yes: Within Normal Limits Back: Yes: Muscle Spasm Musculoskeletal: Yes: Back pain, Muscle Pain Extremities: Yes: Within Normal Limits, Normal Capillary Refill, Normal Inspection, Normal Range of Motion, Tremors Neurological: Yes: project portfolio analyst II-XII NML intact, Fully Oriented, Alert, Motor Strength 5/5 Integumentary: Yes: Dry Lymphatic: Yes: Within Normal Limits - Diagnostic (1) Alcohol dependence with uncomplicated withdrawal Current Visit: No Status: Acute (2) Cocaine dependence Current Visit: No Status: Acute (3) Syphilis Current Visit: No Status: Acute (4) Weight loss Current Visit: No Status: Acute (5) HIV (human immunodeficiency virus infection) Current Visit: No Status: Chronic (6) Nicotine dependence Current Visit: No Status: Chronic Qualifiers: Nicotine product type: cigarettes Substance use status: uncomplicated Qualified Code(s): F17.210 - Nicotine dependence, cigarettes, uncomplicated (7) [id number] transgender person Current Visit: Yes Status: Acute Cleared for Admission [facility] - Detox or Rehab [facility] Level of Care: Medically Managed Detox Regimen/Protocol: Librium S Breath Alcohol Content Breath Alcohol Content: 0 Urine Drug Screen - Results Drug Screen Negative: No Urine Drug Screen Results: THC-Marijuana, AURELIA-Cocaine
[2017-11-30] MEDS ORDERED: chlordiazePOXIDE HCL 25 MG CAPSULE PO ONE (14:13)
[2017-11-30] MEDS ORDERED: IBUPROFEN 400 MG TABLET (FP) PO PRN (14:13)
[2017-11-30] MEDS ORDERED: LOPERAMIDE HCL 2 MG CAPSULE PO PRN (14:13)
[2017-11-30] MEDS ORDERED: chlordiazePOXIDE HCL 25 MG CAPSULE PO PRN (14:13)
[2017-11-30] MEDS ORDERED: NICOTINE POLACRILEX 2 MG GUM BC PRN (14:13)
[2017-11-30] MEDS ORDERED: guaiFENesin/D-METHORPHAN HB 10 ML UNIT-DOSE CUPS PO PRN (14:13)
[2017-11-30] MEDS ORDERED: MAGNESIUM HYDROX 2400MG/30ML ORAL SUSPENSION 30 ML CUP PO PRN (14:13)
[2017-11-30] MEDS ORDERED: MAGNESIUM CITRATE 300 ML BOTTLE PO PRN (14:13)
[2017-11-30] MEDS ORDERED: MAG HYDROX/AL HYDROX/SIMETH 30 ML UNIT-DOSE CUP PO PRN (14:13)
[2017-11-30] MEDS ORDERED: P-EPHED 60MG/TRIPROLIDI 2.5MG TABLET PO PRN (14:13)
[2017-11-30] MEDS ORDERED: ACETAMINOPHEN 325 MG TABLET (FP) PO PRN (14:13)
[2017-11-30] MEDS ORDERED: MENTHOL/PHENOL 1 EACH UD MM PRN (14:13)
[2017-11-30] MEDS: chlordiazePOXIDE HCL 25 MG CAPSULE PO SCH ×2 (17:06→22:32)
[2017-11-30] MEDS: NICOTINE 21 MG/24 HOURS TOPICAL PATCH TD SCH (17:48)
[2017-11-30] MEDS: ESTRADIOL 0.1 MG TD SCH ×2 (19:29→19:50)
[2017-11-30] MEDS: FINASTERIDE 5 MG TABLET (FP) PO SCH (22:32)
[2017-11-30] MEDS: ABACAVIR/DOLUTEGRAVIR/LAMIVUDI (TRIUMEQ) TABLET -NF PO SCH (22:32)
[2017-11-30] MEDS: THIAMINE HCL 100 MG TABLET (FP) PO SCH (22:32)
[2017-12-01 00:03] LABS: URINE APPEARANCE CLEAR; URINE BILIRUBIN NEGATIVE (<2.0 mg/dL); URINE COLOR LTYELLOW; URINE GLUCOSE (UA) NEGATIVE (NEGATIVE); URINE KETONE NEGATIVE (NEGATIVE); URINE NITRITE NEGATIVE (NEGATIVE); URINE PROTEIN NEGATIVE (NEGATIVE); URINE UROBILINOGEN NEGATIVE mg/dL (0.2-1.0)
[2017-12-01 00:31] LABS: URINE LEUK ESTERASE 2+ (NEGATIVE)
[2017-12-01 00:34] LABS: EPI CELLS RARE /HPF (FEW); URINE HYALINE CAST 1 /lpf; URINE MUCUS RARE
[2017-12-01] MEDS: chlordiazePOXIDE HCL 25 MG CAPSULE PO SCH ×4 (05:15→22:18)
[2017-12-01 09:55] LABS: HEMATOCRIT 38.9 % (35.4-49); HEMOGLOBIN 12.8 GM/dL (11.7-16.9); MCH 26.8 pg (25.7-33.7); MCHC 32.8 g/dl (32.0-35.9); MEAN CELL VOLUME 81.8 fl (80-96); MEAN PLT VOLUME 9.2 fl (7.5-11.1); PLATELET COUNT 326 K/MM3 (134-434); RBC 4.75 M/mm3 (4.00-5.60); RDW 15.1 % (11.9-15.9); WHITE BLOOD COUNT 8.2 K/mm3 (4.0-10.0)
[2017-12-01 10:00] LABS: CHLORIDE 106 mmol/L (98-107); POTASSIUM 3.7 mmol/L (3.5-5.1); SODIUM 140 mmol/L (136-145)
[2017-12-01 10:13] LABS: ALBUMIN 3.7 g/dl (3.4-5.0); ALK PHOS 64 U/L (45-117); ANION GAP 9 (8-16); BILIRUBIN,TOTAL 0.7 mg/dL (0.2-1.0); BLOOD UREA NITROGEN 17 mg/dL (7-18); CALCIUM 8.8 mg/dL (8.5-10.1); CO2 25 mmol/L (21-32); CREATININE 1.3 mg/dL (0.7-1.3); GLUCOSE,RANDOM 82 mg/dL (74-106); SGOT/AST 13 U/L (15-37); SGPT/ALT 12 U/L (12-78); TOT PROT 7.5 g/dl (6.4-8.2)
[2017-12-01] MEDS: SPIRONOLACTONE 25 MG TABLET (FP) PO SCH (10:43)
[2017-12-01] MEDS: ASPIRIN 81 MG CHEWABLE TABLETS PO SCH (10:43)
[2017-12-01] MEDS: PRENATAL VITAMINS W/ FOLIC ACID TABLET (FP) PO SCH (10:43)
[2017-12-01] MEDS: NICOTINE 21 MG/24 HOURS TOPICAL PATCH TD SCH (10:43)
--- NOTE | 2017-12-01 10:48 | PN ---
S CIWA - CIWA Score Nausea/Vomitin Muscle Tremors: 3 Anxiety: 3 Agitation: 2 Paroxysmal Sweats: 1-Minimal Palms Moist Orientation: 0-Oriented Tacttile Disturbances: 1-Very Mild Itch/Numbness Auditory Disturbances: 1-Very Mild Visual Disturbances: 0-None Headache: 2-Mild CIWA-Ar Total Score: 16 S Progress Note (SOAP) Subjective: ALERT,IRRITABLE,TREMOR,INTERRUPTED SLEEP,PAIN IN THE BODY Objective: 12/01/17 10:45 Vital Signs Temperature 97.5 F L 12/01/17 09:14 Pulse Rate 71 12/01/17 09:14 Respiratory Rate 16 12/01/17 09:14 Blood Pressure 133/84 12/01/17 09:14 O2 Sat by Pulse Oximetry (%) EKG NORMAL SINUS RHYTHM 62/MIN PROLONG QT 422/428 NO CHEST PAIN,NO SOB,NO DIZZINESS Laboratory Last Values WBC 8.2 K/mm3 (4.0-10.0) 12/01/17 05:45 RBC 4.75 M/mm3 (4.00-5.60) 12/01/17 05:45 Hgb 12.8 GM/dL (11.7-16.9) 12/01/17 05:45 Hct 38.9 % (35.4-49) 12/01/17 05:45 MCV 81.8 fl (80-96) 12/01/17 05:45 MCH 26.8 pg (25.7-33.7) 12/01/17 05:45 MCHC 32.8 g/dl (32.0-35.9) 12/01/17 05:45 RDW 15.1 % (11.9-15.9) 12/01/17 05:45 Plt Count 326 K/MM3 (134-434) 12/01/17 05:45 MPV 9.2 fl (7.5-11.1) 12/01/17 05:45 Sodium 140 mmol/L (136-145) 12/01/17 05:45 Potassium 3.7 mmol/L (3.5-5.1) 12/01/17 05:45 Chloride 106 mmol/L (98-107) 12/01/17 05:45 Carbon Dioxide 25 mmol/L (21-32) 12/01/17 05:45 Anion Gap 9 (8-16) 12/01/17 05:45 BUN 17 mg/dL (7-18) D 12/01/17 05:45 Creatinine 1.3 mg/dL (0.7-1.3) 12/01/17 05:45 Creat Clearance w eGFR > 60 (>60) 12/01/17 05:45 Random Glucose 82 mg/dL (74-106) 12/01/17 05:45 Calcium 8.8 mg/dL (8.5-10.1) 12/01/17 05:45 Total Bilirubin 0.7 mg/dL (0.2-1.0) D 12/01/17 05:45 AST 13 U/L (15-37) L 12/01/17 05:45 ALT 12 U/L (12-78) 12/01/17 05:45 Alkaline Phosphatase 64 U/L (45-117) 12/01/17 05:45 Total Protein 7.5 g/dl (6.4-8.2) 12/01/17 05:45 Albumin 3.7 g/dl (3.4-5.0) 12/01/17 05:45 Urine Color Ltyellow 11/30/17 Unknown Urine Appearance Clear 11/30/17 Unknown Urine pH 6.0 (5.0-8.0) 11/30/17 Unknown Ur Specific [place] 1.010 (1.001-1.035) 11/30/17 Unknown Urine Protein Negative (NEGATIVE) 11/30/17 Unknown Urine Glucose (UA) Negative (NEGATIVE) 11/30/17 Unknown Urine Ketones Negative (NEGATIVE) 11/30/17 Unknown Urine Blood Negative (NEGATIVE) 11/30/17 Unknown Urine Nitrite Negative (NEGATIVE) 11/30/17 Unknown Urine Bilirubin Negative (<2.0 mg/dL) 11/30/17 Unknown Urine Urobilinogen Negative mg/dL (0.2-1.0) 11/30/17 Unknown Ur Leukocyte Esterase 2+ (NEGATIVE) H 11/30/17 Unknown Urine WBC (Auto) 5 /hpf (3-5) 11/30/17 Unknown Urine RBC (Auto) <1 /hpf (0-3) 11/30/17 Unknown Ur Epithelial Cells Rare /HPF (FEW) 11/30/17 Unknown Hyaline Casts 1 /lpf 11/30/17 Unknown Urine Mucus Rare 11/30/17 Unknown 05/24/18 10:47 RPR PENDING Assessment: 12/01/17 10:48 WITHDRAWAL SYMPTOM Plan: CONTINUE DETOX
[2017-12-01 12:53] LABS: RPR REACTIVE 1:4 (NONREACTIVE)
[2017-12-01 12:59] LABS: TREPONEMA ANTIBODY PREVIOUSLY REACTIVE (NONREACTIVE)
--- NOTE | 2017-12-01 14:07 | CONSULT ---
[facility] Psychiatric Consult - Data Date of interview: 12/01/17 Admission source: [facility] Identifying data: This is 37 years old transgender male to female person, single unemployd, on HASSA support, with no psychiatric hospitalization history , with alcohol and crack abuse/dependence,seeking for detox, reports withdrawal symptom, Substance Abuse History: Smoking history: Current every day smoker. Have you smoked in the past 12 months: Yes. Aproximately how many cigarettes per day: 8. Cigars Per Day: 0. Hx Chewing Tobacco Use: No. Initiated information on smoking cessation: Yes. 'Breaking Loose' booklet given: 11/30/17. - Substance & Tx. History. Hx Alcohol Use: Yes. Hx Substance Use: Yes. Substance Use Type : Alcohol, Cocaine. Hx Substance Use Treatment: Yes (vasyl hernandez 0118 completed). - Substances Abused. Alcohol. Route: Oral. Frequency: Daily. Amount used: 3 22 OZ BEERS. Age of first use: 20. Date of Last Use: . Cocaine. Route: Smoking. Frequency: Daily. Amount used: $60. Age of first use: 27. Date of Last Use: 11/29/17 Medical History: HTN, Weight loss, Syphilis history, HIV, Right hand injury. Psychiatric History: Patient reports history of depression and anxiety, denies suicidal history, reports no medications taking prior to admission. Physical/Sexual Abuse/Trauma History: Denies Additional Comment: Observation. Detox Unit Care Protocol. Mental Status Exam - Mental Status Exam Alert and Oriented to: Person Cognitive Function: Fair Patient Appearance: Well Groomed Mood: Apprehensive Affect: Mood Congruent Patient Behavior: Cooperative Speech Pattern: Appropriate Voice Loudness: Mildly Soft/Quiet Thought Process: Goal Oriented Thought Disorder: Being Controlled Hallucinations: Denies Suicidal Ideation: Denies Homicidal Ideation: Denies Insight/Judgement: Fair Sleep: Difficulty falling asleep Appetite: Fair Muscle strength/Tone: Normal Gait/Station: Normal Additional Comments: Observation. Detox Unit Care Protocol. Psychiatric Findings - Problem List ([place] 1, 2,3) (1) Aeyz-wl-sydcye transgender person Current Visit: Yes Status: Acute (2) Alcohol dependence Current Visit: No Status: Acute (3) Alcohol dependence with uncomplicated withdrawal Current Visit: No Status: Acute (4) Cannabis dependence Current Visit: No Status: Acute (5) Cannabis dependence, uncomplicated Current Visit: No Status: Acute (6) Cocaine dependence Current Visit: No Status: Acute (7) Cocaine dependence, uncomplicated Current Visit: No Status: Acute (8) Substance-induced sleep disorder Current Visit: No Status: Chronic (9) Drug-induced mood disorder Current Visit: No Status: Suspected - Initial Treatment Plan Initial Treatment Plan: Observation. Detox Unit Care Protocol.
--- NOTE | 2017-12-01 16:32 | EKG ---
Test Reason : Blood Pressure : / mmHG Vent. Rate : 062 BPM Atrial Rate : 062 BPM P-R Int : 176 ms QRS Dur : 088 ms QT Int : 422 ms P-R-T Axes : 056 072 067 degrees QTc Int : 428 ms NORMAL SINUS RHYTHM NORMAL ECG WHEN COMPARED WITH ECG OF 30-NOV-2017 17:11, SINUS RHYTHM HAS REPLACED ECTOPIC ATRIAL RHYTHM Confirmed by RYAN HOLLOWAY MD ([id number]) on 12/01/2017 4:32:34 PM Referred By: Taisha Johnson Confirmed By:RYAN HOLLOWAY MD
--- NOTE | 2017-12-01 16:34 | EKG ---
Test Reason : Blood Pressure : / mmHG Vent. Rate : 069 BPM Atrial Rate : 069 BPM P-R Int : 156 ms QRS Dur : 084 ms QT Int : 414 ms P-R-T Axes : 265 068 066 degrees QTc Int : 443 ms UNUSUAL P AXIS, POSSIBLE ECTOPIC ATRIAL RHYTHM MINIMAL VOLTAGE CRITERIA FOR LVH, MAY BE NORMAL VARIANT EARLY REPOLARIZATION ABNORMAL ECG WHEN COMPARED WITH ECG OF 09-JUN-2017 16:27, ECTOPIC ATRIAL RHYTHM HAS REPLACED SINUS RHYTHM Confirmed by RYAN HOLLOWAY MD ([id number]) on 12/01/2017 4:34:30 PM Referred By: Taisha Johnson Confirmed By:RYAN HOLLOWAY MD
[2017-12-01] MEDS: THIAMINE HCL 100 MG TABLET (FP) PO SCH (22:18)
[2017-12-01] MEDS: ABACAVIR/DOLUTEGRAVIR/LAMIVUDI (TRIUMEQ) TABLET -NF PO SCH (22:22)
[2017-12-01] MEDS: FINASTERIDE 5 MG TABLET (FP) PO SCH (22:22)
[2017-12-01] MEDS: hydrOXYzine PAMOATE 25 MG CAPSULE (FP) PO PRN (22:22)
[2017-12-02] MEDS: chlordiazePOXIDE HCL 25 MG CAPSULE PO SCH ×2 (05:30→10:20)
[2017-12-02] MEDS: PRENATAL VITAMINS W/ FOLIC ACID TABLET (FP) PO SCH (10:20)
[2017-12-02] MEDS: NICOTINE 21 MG/24 HOURS TOPICAL PATCH TD SCH (10:20)
[2017-12-02] MEDS: SPIRONOLACTONE 25 MG TABLET (FP) PO SCH (10:20)
[2017-12-02] MEDS: ASPIRIN 81 MG CHEWABLE TABLETS PO SCH (10:20)
--- NOTE | 2017-12-02 10:27 | PN ---
S CIWA - CIWA Score Nausea/Vomitin Muscle Tremors: 3 Anxiety: 2 Agitation: 2 Paroxysmal Sweats: 1-Minimal Palms Moist Orientation: 0-Oriented Tacttile Disturbances: 1-Very Mild Itch/Numbness Auditory Disturbances: 1-Very Mild Visual Disturbances: 0-None Headache: 2-Mild CIWA-Ar Total Score: 15 S Progress Note (SOAP) Subjective: ALERT,IRRITABLE,ANXIOUS,INTERRUPTED SLEEP, Objective: 12/02/17 10:26 Vital Signs Temperature 97.9 F 12/02/17 10:00 Pulse Rate 83 12/02/17 10:00 Respiratory Rate 20 12/02/17 10:00 Blood Pressure 134/95 12/02/17 10:00 O2 Sat by Pulse Oximetry (%) 12/02/17 10:26 Laboratory Last Values WBC 8.2 K/mm3 (4.0-10.0) 12/01/17 05:45 RBC 4.75 M/mm3 (4.00-5.60) 12/01/17 05:45 Hgb 12.8 GM/dL (11.7-16.9) 12/01/17 05:45 Hct 38.9 % (35.4-49) 12/01/17 05:45 MCV 81.8 fl (80-96) 12/01/17 05:45 MCH 26.8 pg (25.7-33.7) 12/01/17 05:45 MCHC 32.8 g/dl (32.0-35.9) 12/01/17 05:45 RDW 15.1 % (11.9-15.9) 12/01/17 05:45 Plt Count 326 K/MM3 (134-434) 12/01/17 05:45 MPV 9.2 fl (7.5-11.1) 12/01/17 05:45 Sodium 140 mmol/L (136-145) 12/01/17 05:45 Potassium 3.7 mmol/L (3.5-5.1) 12/01/17 05:45 Chloride 106 mmol/L (98-107) 12/01/17 05:45 Carbon Dioxide 25 mmol/L (21-32) 12/01/17 05:45 Anion Gap 9 (8-16) 12/01/17 05:45 BUN 17 mg/dL (7-18) D 12/01/17 05:45 Creatinine 1.3 mg/dL (0.7-1.3) 12/01/17 05:45 Creat Clearance w eGFR > 60 (>60) 12/01/17 05:45 Random Glucose 82 mg/dL (74-106) 12/01/17 05:45 Calcium 8.8 mg/dL (8.5-10.1) 12/01/17 05:45 Total Bilirubin 0.7 mg/dL (0.2-1.0) D 12/01/17 05:45 AST 13 U/L (15-37) L 12/01/17 05:45 ALT 12 U/L (12-78) 12/01/17 05:45 Alkaline Phosphatase 64 U/L (45-117) 12/01/17 05:45 Total Protein 7.5 g/dl (6.4-8.2) 12/01/17 05:45 Albumin 3.7 g/dl (3.4-5.0) 12/01/17 05:45 Urine Color Ltyellow 11/30/17 Unknown Urine Appearance Clear 11/30/17 Unknown Urine pH 6.0 (5.0-8.0) 11/30/17 Unknown Ur Specific [place] 1.010 (1.001-1.035) 11/30/17 Unknown Urine Protein Negative (NEGATIVE) 11/30/17 Unknown Urine Glucose (UA) Negative (NEGATIVE) 11/30/17 Unknown Urine Ketones Negative (NEGATIVE) 11/30/17 Unknown Urine Blood Negative (NEGATIVE) 11/30/17 Unknown Urine Nitrite Negative (NEGATIVE) 11/30/17 Unknown Urine Bilirubin Negative (<2.0 mg/dL) 11/30/17 Unknown Urine Urobilinogen Negative mg/dL (0.2-1.0) 11/30/17 Unknown Ur Leukocyte Esterase 2+ (NEGATIVE) H 11/30/17 Unknown Urine WBC (Auto) 5 /hpf (3-5) 11/30/17 Unknown Urine RBC (Auto) <1 /hpf (0-3) 11/30/17 Unknown Ur Epithelial Cells Rare /HPF (FEW) 11/30/17 Unknown Hyaline Casts 1 /lpf 11/30/17 Unknown Urine Mucus Rare 11/30/17 Unknown RPR Titer Reactive 1:4 (NONREACTIVE) H D 12/01/17 05:45 Tronda Ab ([facility]) Previously reactive (NONREACTIVE) 12/01/17 05:45 Assessment: 12/02/17 10:26 WITHDRAWAL SYMPTOM Plan: CONTINUE DETOX
--- NOTE | 2017-12-02 10:33 | PN ---
[facility] Progress Note Note: Laboratory Last Values WBC 8.2 K/mm3 (4.0-10.0) 12/01/17 05:45 RBC 4.75 M/mm3 (4.00-5.60) 12/01/17 05:45 Hgb 12.8 GM/dL (11.7-16.9) 12/01/17 05:45 Hct 38.9 % (35.4-49) 12/01/17 05:45 MCV 81.8 fl (80-96) 12/01/17 05:45 MCH 26.8 pg (25.7-33.7) 12/01/17 05:45 MCHC 32.8 g/dl (32.0-35.9) 12/01/17 05:45 RDW 15.1 % (11.9-15.9) 12/01/17 05:45 Plt Count 326 K/MM3 (134-434) 12/01/17 05:45 MPV 9.2 fl (7.5-11.1) 12/01/17 05:45 Sodium 140 mmol/L (136-145) 12/01/17 05:45 Potassium 3.7 mmol/L (3.5-5.1) 12/01/17 05:45 Chloride 106 mmol/L (98-107) 12/01/17 05:45 Carbon Dioxide 25 mmol/L (21-32) 12/01/17 05:45 Anion Gap 9 (8-16) 12/01/17 05:45 BUN 17 mg/dL (7-18) D 12/01/17 05:45 Creatinine 1.3 mg/dL (0.7-1.3) 12/01/17 05:45 Creat Clearance w eGFR > 60 (>60) 12/01/17 05:45 Random Glucose 82 mg/dL (74-106) 12/01/17 05:45 Calcium 8.8 mg/dL (8.5-10.1) 12/01/17 05:45 Total Bilirubin 0.7 mg/dL (0.2-1.0) D 12/01/17 05:45 AST 13 U/L (15-37) L 12/01/17 05:45 ALT 12 U/L (12-78) 12/01/17 05:45 Alkaline Phosphatase 64 U/L (45-117) 12/01/17 05:45 Total Protein 7.5 g/dl (6.4-8.2) 12/01/17 05:45 Albumin 3.7 g/dl (3.4-5.0) 12/01/17 05:45 Urine Color Ltyellow 11/30/17 Unknown Urine Appearance Clear 11/30/17 Unknown Urine pH 6.0 (5.0-8.0) 11/30/17 Unknown Ur Specific [place] 1.010 (1.001-1.035) 11/30/17 Unknown Urine Protein Negative (NEGATIVE) 11/30/17 Unknown Urine Glucose (UA) Negative (NEGATIVE) 11/30/17 Unknown Urine Ketones Negative (NEGATIVE) 11/30/17 Unknown Urine Blood Negative (NEGATIVE) 11/30/17 Unknown Urine Nitrite Negative (NEGATIVE) 11/30/17 Unknown Urine Bilirubin Negative (<2.0 mg/dL) 11/30/17 Unknown Urine Urobilinogen Negative mg/dL (0.2-1.0) 11/30/17 Unknown Ur Leukocyte Esterase 2+ (NEGATIVE) H 11/30/17 Unknown Urine WBC (Auto) 5 /hpf (3-5) 11/30/17 Unknown Urine RBC (Auto) <1 /hpf (0-3) 11/30/17 Unknown Ur Epithelial Cells Rare /HPF (FEW) 11/30/17 Unknown Hyaline Casts 1 /lpf 11/30/17 Unknown Urine Mucus Rare 11/30/17 Unknown RPR Titer Reactive 1:4 (NONREACTIVE) H D 12/01/17 05:45 T.pallidum Ab ([facility]) Previously reactive (NONREACTIVE) 12/01/17 05:45 PREVIOUSLY TREATED FOR SYPHILIS BEFORE CONTINUE DETOX
[2017-12-02] MEDS: hydrOXYzine PAMOATE 25 MG CAPSULE (FP) PO PRN (15:30)
[2017-12-02] MEDS: chlordiazePOXIDE 5 MG CAPSULE PO SCH ×2 (17:47→22:11)
[2017-12-02] MEDS: ABACAVIR/DOLUTEGRAVIR/LAMIVUDI (TRIUMEQ) TABLET -NF PO SCH (22:11)
[2017-12-02] MEDS: THIAMINE HCL 100 MG TABLET (FP) PO SCH (22:11)
[2017-12-02] MEDS: FINASTERIDE 5 MG TABLET (FP) PO SCH (22:11)
[2017-12-02] MEDS: MELATONIN 5 MG TABLETS PO PRN (22:13)
[2017-12-03] MEDS: chlordiazePOXIDE 5 MG CAPSULE PO SCH ×2 (05:33→10:13)
--- NOTE | 2017-12-03 10:12 | PN ---
S Progress Note (SOAP) Subjective: ALERT,IRRITABLE,INTERRUPTED SLEEP Objective: 12/03/17 10:11 Vital Signs Temperature 97.7 F 12/03/17 09:16 Pulse Rate 78 12/03/17 09:16 Respiratory Rate 16 12/03/17 09:16 Blood Pressure 133/88 12/03/17 09:16 O2 Sat by Pulse Oximetry (%) Assessment: 12/03/17 10:11 WITHDRAWAL SYMPTOM Plan: CONTINUE DETOX,DISCHARGE IN AM
[2017-12-03] MEDS: hydrOXYzine PAMOATE 25 MG CAPSULE (FP) PO PRN ×2 (10:13→17:28)
[2017-12-03] MEDS: PRENATAL VITAMINS W/ FOLIC ACID TABLET (FP) PO SCH (10:13)
[2017-12-03] MEDS: ASPIRIN 81 MG CHEWABLE TABLETS PO SCH (10:13)
[2017-12-03] MEDS: SPIRONOLACTONE 25 MG TABLET (FP) PO SCH (10:13)
[2017-12-03] MEDS: NICOTINE 21 MG/24 HOURS TOPICAL PATCH TD SCH (10:14)
[2017-12-03] MEDS: chlordiazePOXIDE HCL 10 MG CAPSULE PO SCH ×2 (17:28→22:13)
[2017-12-03] MEDS: THIAMINE HCL 100 MG TABLET (FP) PO SCH (22:13)
[2017-12-03] MEDS: FINASTERIDE 5 MG TABLET (FP) PO SCH (22:14)
[2017-12-03] MEDS: ABACAVIR/DOLUTEGRAVIR/LAMIVUDI (TRIUMEQ) TABLET -NF PO SCH (22:14)
[2017-12-03] MEDS: MELATONIN 5 MG TABLETS PO PRN (22:14)
[2017-12-04] MEDS: chlordiazePOXIDE HCL 10 MG CAPSULE PO SCH ×2 (05:20→10:10)
[2017-12-04 09:11] VITALS: BP 134/98; PULSE 74; TEMP 97.3
--- NOTE | 2017-12-04 09:40 | PN ---
S Progress Note (SOAP) Subjective: alert,no complaint Objective: 12/04/17 09:36 Vital Signs Temperature 97.3 F L 12/04/17 09:10 Pulse Rate 74 12/04/17 09:10 Respiratory Rate 16 12/04/17 09:10 Blood Pressure 134/98 12/04/17 09:10 O2 Sat by Pulse Oximetry (%) Assessment: 12/04/17 09:39 detox completed,no withdrawal symptom Plan: discharge today,follow up with [facility] program as arrangement
--- NOTE | 2017-12-04 09:45 | DS ---
[facility] Detox Discharge Summary Admission Date: 11/30/17 Discharge Date: 12/04/17 - History Present History: Alcohol Dependence, Cocaine Dependence Additional Comments: follow up with after care program as arrangement Pertinent Past History: hiv nicotine dependence history of syphilis male to female transgender - Physical Exam Results Vital Signs: Vital Signs Temperature 97.3 F L 12/04/17 09:10 Pulse Rate 74 12/04/17 09:10 Respiratory Rate 16 12/04/17 09:10 Blood Pressure 134/98 12/04/17 09:10 O2 Sat by Pulse Oximetry (%) Pertinent Admission Physical Exam Findings: withdrawal signs and symptom Vital Signs Temperature 97.3 F L 12/04/17 09:10 Pulse Rate 74 12/04/17 09:10 Respiratory Rate 16 12/04/17 09:10 Blood Pressure 134/98 12/04/17 09:10 O2 Sat by Pulse Oximetry (%) Laboratory Last Values WBC 8.2 K/mm3 (4.0-10.0) 12/01/17 05:45 RBC 4.75 M/mm3 (4.00-5.60) 12/01/17 05:45 Hgb 12.8 GM/dL (11.7-16.9) 12/01/17 05:45 Hct 38.9 % (35.4-49) 12/01/17 05:45 MCV 81.8 fl (80-96) 12/01/17 05:45 MCH 26.8 pg (25.7-33.7) 12/01/17 05:45 MCHC 32.8 g/dl (32.0-35.9) 12/01/17 05:45 RDW 15.1 % (11.9-15.9) 12/01/17 05:45 Plt Count 326 K/MM3 (134-434) 12/01/17 05:45 MPV 9.2 fl (7.5-11.1) 12/01/17 05:45 Sodium 140 mmol/L (136-145) 12/01/17 05:45 Potassium 3.7 mmol/L (3.5-5.1) 12/01/17 05:45 Chloride 106 mmol/L (98-107) 12/01/17 05:45 Carbon Dioxide 25 mmol/L (21-32) 12/01/17 05:45 Anion Gap 9 (8-16) 12/01/17 05:45 BUN 17 mg/dL (7-18) D 12/01/17 05:45 Creatinine 1.3 mg/dL (0.7-1.3) 12/01/17 05:45 Creat Clearance w eGFR > 60 (>60) 12/01/17 05:45 Random Glucose 82 mg/dL (74-106) 12/01/17 05:45 Calcium 8.8 mg/dL (8.5-10.1) 12/01/17 05:45 Total Bilirubin 0.7 mg/dL (0.2-1.0) D 12/01/17 05:45 AST 13 U/L (15-37) L 12/01/17 05:45 ALT 12 U/L (12-78) 12/01/17 05:45 Alkaline Phosphatase 64 U/L (45-117) 12/01/17 05:45 Total Protein 7.5 g/dl (6.4-8.2) 12/01/17 05:45 Albumin 3.7 g/dl (3.4-5.0) 12/01/17 05:45 Urine Color Ltyellow 11/30/17 Unknown Urine Appearance Clear 11/30/17 Unknown Urine pH 6.0 (5.0-8.0) 11/30/17 Unknown Ur Specific [place] 1.010 (1.001-1.035) 11/30/17 Unknown Urine Protein Negative (NEGATIVE) 11/30/17 Unknown Urine Glucose (UA) Negative (NEGATIVE) 11/30/17 Unknown Urine Ketones Negative (NEGATIVE) 11/30/17 Unknown Urine Blood Negative (NEGATIVE) 11/30/17 Unknown Urine Nitrite Negative (NEGATIVE) 11/30/17 Unknown Urine Bilirubin Negative (<2.0 mg/dL) 11/30/17 Unknown Urine Urobilinogen Negative mg/dL (0.2-1.0) 11/30/17 Unknown Ur Leukocyte Esterase 2+ (NEGATIVE) H 11/30/17 Unknown Urine WBC (Auto) 5 /hpf (3-5) 11/30/17 Unknown Urine RBC (Auto) <1 /hpf (0-3) 11/30/17 Unknown Ur Epithelial Cells Rare /HPF (FEW) 11/30/17 Unknown Hyaline Casts 1 /lpf 11/30/17 Unknown Urine Mucus Rare 11/30/17 Unknown RPR Titer Reactive 1:4 (NONREACTIVE) H D 12/01/17 05:45 T.pallidum Ab ([facility]) Previously reactive (NONREACTIVE) 12/01/17 05:45 - Treatment Hospital Course: Detox Protocol Followed, Detoxed Safely, Responded well, Discharged Condition Good, Rehab Referral Accepted Patient has Accepted a Rehab Referral to: [facility] - Medication Discharge Medications: Ambulatory Orders Aspirin [ASA -] 81 mg PO DAILY 12/22/15 Quetiapine Fumarate [Seroquel -] 100 mg PO HS #30 tab 03/02/17 Abacavir/Dolutegravir/Lamivudi [Triumeq Tablet] 1 each PO HS 06/09/17 Finasteride [Proscar -] 5 mg PO HS 06/09/17 Spironolactone [Aldactone] 25 mg PO DAILY 06/09/17 Estradiol [Estradiol Transdermal Patch] 0.1 mg TD WEEKLY 11/30/17 - Diagnosis (1) Alcohol dependence with uncomplicated withdrawal Current Visit: No Status: Acute (2) Cocaine dependence Current Visit: No Status: Acute (3) Syphilis Current Visit: No Status: Acute (4) Weight loss Current Visit: No Status: Acute (5) HIV (human immunodeficiency virus infection) Current Visit: No Status: Chronic (6) Nicotine dependence Current Visit: No Status: Chronic Qualifiers: Nicotine product type: cigarettes Substance use status: uncomplicated Qualified Code(s): F17.210 - Nicotine dependence, cigarettes, uncomplicated (7) Jqha-en-pygcye transgender person Current Visit: Yes Status: Acute - AMA Did Patient Leave Against Medical Advice: No
[2017-12-04] MEDS: PRENATAL VITAMINS W/ FOLIC ACID TABLET (FP) PO SCH (10:10)
[2017-12-04] MEDS: SPIRONOLACTONE 25 MG TABLET (FP) PO SCH (10:10)
[2017-12-04] MEDS: ASPIRIN 81 MG CHEWABLE TABLETS PO SCH (10:10)
[2017-12-04] MEDS: NICOTINE 21 MG/24 HOURS TOPICAL PATCH TD SCH (10:10)
[2017-12-04] MEDS: hydrOXYzine PAMOATE 25 MG CAPSULE (FP) PO PRN (10:12)
== END 2017-12-04 12:45 | disposition other institution (70) | DRG 774 ==
LOC: YASAS 11:31 → Y6N 16:26
PROVIDERS: ADMIT Surgery; ATTEND Surgery
PROC: HZ2ZZZZ Detoxification Services for Substance Abuse Treatment (ICD-10-PCS; principal; 2017-11-30)
DX: F10.230 Alcohol dependence with withdrawal, uncomplicated (principal); F14.20 Cocaine dependence, uncomplicated; F12.20 Cannabis dependence, uncomplicated; F17.210 Nicotine dependence, cigarettes, uncomplicated; F19.24 Other psychoactive substance dependence with psychoactive substance-induced mood disorder; F41.8 Other specified anxiety disorders; F64.0 Transsexualism; F64.1 Dual role transvestism; R63.4 Abnormal weight loss; Z68.23 Body mass index [BMI] 23.0-23.9, adult; G47.00 Insomnia, unspecified; Z86.19 Personal history of other infectious and parasitic diseases; Z21 Asymptomatic human immunodeficiency virus [HIV] infection status
CPT/HCPCS: 36415; 80053; 81003; 81015; 85027; 86593; 86780; 93005; 93010

== ENCOUNTER 2017-12-04 12:52 | Inpatient (IN) | payer OTHER ==
--- NOTE | 2017-12-04 13:47 | HP ---
[facility] Rehab Assess/Revision - Admission History Admitted to Rehab from: [facility] Date of Admission to Rehab: 12/04/17 - Vital signs Vital Signs: Vital Signs Period Temp Pulse Resp BP Sys/Vanessa Pulse Ox Last 24 Hr 98.0 F 18 90 140/80 - Findings Detox History & Physical reviewed: Yes Concur with findings: Yes Inpatient Rehab Admission - Initial Determination Are CD services needed?: Yes Free of communicable disease: Yes Not in need of hospitalization: Yes - Rehab Admission Criteria Previous failed treatment: Yes Poor recovery environment: Yes Comorbidities: Yes Lacks judgement: No Patient is meeting Inpatient Rehab admission criteria:: Yes
[2017-12-04] MEDS ORDERED: guaiFENesin/D-METHORPHAN HB 10 ML UNIT-DOSE CUPS PO PRN (13:48)
[2017-12-04] MEDS ORDERED: MAG HYDROX/AL HYDROX/SIMETH 30 ML UNIT-DOSE CUP PO PRN (13:48)
[2017-12-04] MEDS ORDERED: MAGNESIUM HYDROX 2400MG/30ML ORAL SUSPENSION 30 ML CUP PO PRN (13:48)
[2017-12-04] MEDS ORDERED: LOPERAMIDE HCL 2 MG CAPSULE PO PRN (13:48)
[2017-12-04] MEDS ORDERED: MAGNESIUM CITRATE 300 ML BOTTLE PO PRN (13:48)
[2017-12-04] MEDS ORDERED: MENTHOL/PHENOL 1 EACH UD MM PRN (13:48)
[2017-12-04] MEDS ORDERED: P-EPHED 60MG/TRIPROLIDI 2.5MG TABLET PO PRN (13:48)
[2017-12-04] MEDS ORDERED: hydrOXYzine PAMOATE 50 MG CAPSULE (FP) PO PRN (13:48)
[2017-12-04] MEDS: FINASTERIDE 5 MG TABLET (FP) PO SCH (21:54)
[2017-12-04] MEDS: THIAMINE HCL 100 MG TABLET (FP) PO SCH (21:54)
[2017-12-04] MEDS: MELATONIN 5 MG TABLETS PO PRN (21:55)
[2017-12-05] MEDS: PRENATAL VITAMINS W/ FOLIC ACID TABLET (FP) PO SCH (09:43)
[2017-12-05] MEDS: SPIRONOLACTONE 25 MG TABLET (FP) PO SCH (09:43)
[2017-12-05] MEDS: ASPIRIN 81 MG CHEWABLE TABLETS PO SCH (09:43)
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
[2017-12-05] MEDS: THIAMINE HCL 100 MG TABLET (FP) PO SCH (21:19)
[2017-12-05] MEDS: FINASTERIDE 5 MG TABLET (FP) PO SCH (21:19)
[2017-12-05] MEDS: MELATONIN 5 MG TABLETS PO PRN (21:20)
--- NOTE | 2017-12-06 07:46 | PN ---
S Progress Note Note: patient c/o insomnia and racing thoughts at nights which keep him up, will increase seroquel 150 mg po hs.
[2017-12-06] MEDS: PRENATAL VITAMINS W/ FOLIC ACID TABLET (FP) PO SCH (10:02)
[2017-12-06] MEDS: ASPIRIN 81 MG CHEWABLE TABLETS PO SCH (10:02)
[2017-12-06] MEDS: SPIRONOLACTONE 25 MG TABLET (FP) PO SCH (10:02)
--- NOTE | 2017-12-06 12:32 | PN ---
[facility] Progress Note Note: Pt reports smokes 8 cigarettes daily. Nicotine and Patch ordered. Continue to monitor.
[2017-12-06] MEDS: NICOTINE 14 MG/24 HOURS TOPICAL PATCH TD SCH (14:04)
[2017-12-06] MEDS: NICOTINE POLACRILEX 2 MG GUM BUC PRN (14:06)
[2017-12-06] MEDS: FINASTERIDE 5 MG TABLET (FP) PO SCH (21:22)
[2017-12-06] MEDS: QUEtiapine FUMARATE 50 MG TABLET PO SCH (21:22)
[2017-12-06] MEDS: THIAMINE HCL 100 MG TABLET (FP) PO SCH (21:23)
[2017-12-07] MEDS: ASPIRIN 81 MG CHEWABLE TABLETS PO SCH (10:03)
[2017-12-07] MEDS: SPIRONOLACTONE 25 MG TABLET (FP) PO SCH (10:03)
[2017-12-07] MEDS: PRENATAL VITAMINS W/ FOLIC ACID TABLET (FP) PO SCH (10:03)
[2017-12-07] MEDS: NICOTINE 14 MG/24 HOURS TOPICAL PATCH TD SCH (10:04)
[2017-12-07] MEDS ORDERED: ESTRADIOL 0.1 MG TD SCH (19:00)
[2017-12-07] MEDS: THIAMINE HCL 100 MG TABLET (FP) PO SCH (21:21)
[2017-12-07] MEDS: FINASTERIDE 5 MG TABLET (FP) PO SCH (21:21)
[2017-12-07] MEDS: QUEtiapine FUMARATE 50 MG TABLET PO SCH (21:21)
[2017-12-08] MEDS: ASPIRIN 81 MG CHEWABLE TABLETS PO SCH (10:01)
[2017-12-08] MEDS: NICOTINE 14 MG/24 HOURS TOPICAL PATCH TD SCH (10:01)
[2017-12-08] MEDS: SPIRONOLACTONE 25 MG TABLET (FP) PO SCH (10:01)
[2017-12-08] MEDS: PRENATAL VITAMINS W/ FOLIC ACID TABLET (FP) PO SCH (10:01)
[2017-12-08] MEDS: FINASTERIDE 5 MG TABLET (FP) PO SCH (21:42)
[2017-12-08] MEDS: THIAMINE HCL 100 MG TABLET (FP) PO SCH (21:42)
[2017-12-08] MEDS: QUEtiapine FUMARATE 50 MG TABLET PO SCH (21:42)
[2017-12-09] MEDS: IBUPROFEN 400 MG TABLET (FP) PO PRN ×2 (04:34→22:36)
[2017-12-09] MEDS: PRENATAL VITAMINS W/ FOLIC ACID TABLET (FP) PO SCH (10:28)
[2017-12-09] MEDS: ASPIRIN 81 MG CHEWABLE TABLETS PO SCH (10:28)
[2017-12-09] MEDS: NICOTINE 14 MG/24 HOURS TOPICAL PATCH TD SCH (10:29)
[2017-12-09] MEDS: SPIRONOLACTONE 25 MG TABLET (FP) PO SCH (10:29)
[2017-12-09] MEDS: ACETAMINOPHEN 325 MG TABLET (FP) PO PRN (10:29)
[2017-12-09] MEDS: THIAMINE HCL 100 MG TABLET (FP) PO SCH (21:25)
[2017-12-09] MEDS: QUEtiapine FUMARATE 50 MG TABLET PO SCH (21:25)
[2017-12-09] MEDS: FINASTERIDE 5 MG TABLET (FP) PO SCH (21:25)
[2017-12-10] MEDS: NICOTINE 14 MG/24 HOURS TOPICAL PATCH TD SCH (10:21)
[2017-12-10] MEDS: SPIRONOLACTONE 25 MG TABLET (FP) PO SCH (10:21)
[2017-12-10] MEDS: NICOTINE POLACRILEX 2 MG GUM BUC PRN (10:21)
[2017-12-10] MEDS: PRENATAL VITAMINS W/ FOLIC ACID TABLET (FP) PO SCH (10:21)
[2017-12-10] MEDS: ASPIRIN 81 MG CHEWABLE TABLETS PO SCH (10:21)
[2017-12-10] MEDS: FINASTERIDE 5 MG TABLET (FP) PO SCH (21:37)
[2017-12-10] MEDS: QUEtiapine FUMARATE 50 MG TABLET PO SCH (21:37)
[2017-12-10] MEDS: THIAMINE HCL 100 MG TABLET (FP) PO SCH (21:38)
[2017-12-10] MEDS: IBUPROFEN 400 MG TABLET (FP) PO PRN (21:39)
[2017-12-11] MEDS: SPIRONOLACTONE 25 MG TABLET (FP) PO SCH (10:02)
[2017-12-11] MEDS: PRENATAL VITAMINS W/ FOLIC ACID TABLET (FP) PO SCH (10:02)
[2017-12-11] MEDS: ASPIRIN 81 MG CHEWABLE TABLETS PO SCH (10:02)
[2017-12-11] MEDS: ACETAMINOPHEN 325 MG TABLET (FP) PO PRN (10:03)
[2017-12-11] MEDS: NICOTINE 14 MG/24 HOURS TOPICAL PATCH TD SCH (10:03)
[2017-12-11] MEDS: NICOTINE POLACRILEX 2 MG GUM BUC PRN (10:04)
[2017-12-11] MEDS: FINASTERIDE 5 MG TABLET (FP) PO SCH (21:57)
[2017-12-11] MEDS: QUEtiapine FUMARATE 50 MG TABLET PO SCH (21:57)
[2017-12-11] MEDS: IBUPROFEN 400 MG TABLET (FP) PO PRN (21:57)
[2017-12-11] MEDS: THIAMINE HCL 100 MG TABLET (FP) PO SCH (21:57)
[2017-12-12] MEDS: IBUPROFEN 400 MG TABLET (FP) PO PRN ×2 (10:15→21:33)
[2017-12-12] MEDS: ASPIRIN 81 MG CHEWABLE TABLETS PO SCH (10:15)
[2017-12-12] MEDS: NICOTINE 14 MG/24 HOURS TOPICAL PATCH TD SCH (10:16)
[2017-12-12] MEDS: SPIRONOLACTONE 25 MG TABLET (FP) PO SCH (10:16)
[2017-12-12] MEDS: PRENATAL VITAMINS W/ FOLIC ACID TABLET (FP) PO SCH (10:16)
[2017-12-12] MEDS: NICOTINE POLACRILEX 2 MG GUM BUC PRN ×2 (10:17→21:34)
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
[2017-12-12] MEDS: FINASTERIDE 5 MG TABLET (FP) PO SCH (21:32)
[2017-12-12] MEDS: QUEtiapine FUMARATE 50 MG TABLET PO SCH (21:32)
[2017-12-12] MEDS: THIAMINE HCL 100 MG TABLET (FP) PO SCH (22:06)
[2017-12-13] MEDS: PRENATAL VITAMINS W/ FOLIC ACID TABLET (FP) PO SCH (10:29)
[2017-12-13] MEDS: ASPIRIN 81 MG CHEWABLE TABLETS PO SCH (10:29)
[2017-12-13] MEDS: NICOTINE 14 MG/24 HOURS TOPICAL PATCH TD SCH (10:29)
[2017-12-13] MEDS: SPIRONOLACTONE 25 MG TABLET (FP) PO SCH (10:29)
[2017-12-13] MEDS: ACETAMINOPHEN 325 MG TABLET (FP) PO PRN ×2 (10:31→18:13)
[2017-12-13] MEDS: NICOTINE POLACRILEX 2 MG GUM BUC PRN ×2 (10:32→21:51)
[2017-12-13] MEDS: THIAMINE HCL 100 MG TABLET (FP) PO SCH (21:49)
[2017-12-13] MEDS: QUEtiapine FUMARATE 50 MG TABLET PO SCH (21:50)
[2017-12-13] MEDS: FINASTERIDE 5 MG TABLET (FP) PO SCH (21:50)
[2017-12-14] MEDS: ASPIRIN 81 MG CHEWABLE TABLETS PO SCH (10:20)
[2017-12-14] MEDS: PRENATAL VITAMINS W/ FOLIC ACID TABLET (FP) PO SCH (10:20)
[2017-12-14] MEDS: SPIRONOLACTONE 25 MG TABLET (FP) PO SCH (10:20)
[2017-12-14] MEDS: NICOTINE 14 MG/24 HOURS TOPICAL PATCH TD SCH (10:21)
[2017-12-14] MEDS: NICOTINE POLACRILEX 2 MG GUM BUC PRN (10:22)
[2017-12-14] MEDS ORDERED: ESTRADIOL 0.1 MG TD SCH ×2 (11:09→12:00)
[2017-12-14] MEDS: FINASTERIDE 5 MG TABLET (FP) PO SCH (21:23)
[2017-12-14] MEDS: QUEtiapine FUMARATE 50 MG TABLET PO SCH (21:23)
[2017-12-14] MEDS: THIAMINE HCL 100 MG TABLET (FP) PO SCH (21:23)
[2017-12-15] MEDS: PRENATAL VITAMINS W/ FOLIC ACID TABLET (FP) PO SCH (09:44)
[2017-12-15] MEDS: ASPIRIN 81 MG CHEWABLE TABLETS PO SCH (09:44)
[2017-12-15] MEDS: NICOTINE 14 MG/24 HOURS TOPICAL PATCH TD SCH (09:44)
[2017-12-15] MEDS: SPIRONOLACTONE 25 MG TABLET (FP) PO SCH (09:44)
[2017-12-15] MEDS: IBUPROFEN 400 MG TABLET (FP) PO PRN ×2 (09:45→21:43)
[2017-12-15] MEDS: THIAMINE HCL 100 MG TABLET (FP) PO SCH (21:43)
[2017-12-15] MEDS: QUEtiapine FUMARATE 50 MG TABLET PO SCH (21:43)
[2017-12-15] MEDS: FINASTERIDE 5 MG TABLET (FP) PO SCH (21:43)
[2017-12-16] MEDS: PRENATAL VITAMINS W/ FOLIC ACID TABLET (FP) PO SCH (10:22)
[2017-12-16] MEDS: SPIRONOLACTONE 25 MG TABLET (FP) PO SCH (10:22)
[2017-12-16] MEDS: NICOTINE 14 MG/24 HOURS TOPICAL PATCH TD SCH (10:22)
[2017-12-16] MEDS: ASPIRIN 81 MG CHEWABLE TABLETS PO SCH (10:22)
[2017-12-16] MEDS: ACETAMINOPHEN 325 MG TABLET (FP) PO PRN (10:22)
[2017-12-16] MEDS: NICOTINE POLACRILEX 2 MG GUM BUC PRN (10:23)
[2017-12-16] MEDS: QUEtiapine FUMARATE 50 MG TABLET PO SCH (21:11)
[2017-12-16] MEDS: FINASTERIDE 5 MG TABLET (FP) PO SCH (21:11)
[2017-12-16] MEDS: IBUPROFEN 400 MG TABLET (FP) PO PRN (21:12)
[2017-12-16] MEDS: THIAMINE HCL 100 MG TABLET (FP) PO SCH (21:13)
[2017-12-17] MEDS: ASPIRIN 81 MG CHEWABLE TABLETS PO SCH (10:32)
[2017-12-17] MEDS: SPIRONOLACTONE 25 MG TABLET (FP) PO SCH (10:33)
[2017-12-17] MEDS: PRENATAL VITAMINS W/ FOLIC ACID TABLET (FP) PO SCH (10:33)
[2017-12-17] MEDS: NICOTINE 14 MG/24 HOURS TOPICAL PATCH TD SCH (10:33)
[2017-12-17] MEDS: NICOTINE POLACRILEX 2 MG GUM BUC PRN (10:34)
[2017-12-17] MEDS: IBUPROFEN 400 MG TABLET (FP) PO PRN ×2 (10:35→21:29)
[2017-12-17] MEDS: QUEtiapine FUMARATE 50 MG TABLET PO SCH (21:29)
[2017-12-17] MEDS: FINASTERIDE 5 MG TABLET (FP) PO SCH (21:29)
[2017-12-17] MEDS: THIAMINE HCL 100 MG TABLET (FP) PO SCH (21:29)
[2017-12-18 07:04] VITALS: TEMP 98
[2017-12-18] MEDS: ASPIRIN 81 MG CHEWABLE TABLETS PO SCH (10:16)
[2017-12-18] MEDS: SPIRONOLACTONE 25 MG TABLET (FP) PO SCH (10:16)
[2017-12-18] MEDS: PRENATAL VITAMINS W/ FOLIC ACID TABLET (FP) PO SCH (10:16)
[2017-12-18] MEDS: NICOTINE 14 MG/24 HOURS TOPICAL PATCH TD SCH (10:16)
[2017-12-18] MEDS: NICOTINE POLACRILEX 2 MG GUM BUC PRN (10:17)
[2017-12-18] MEDS: ACETAMINOPHEN 325 MG TABLET (FP) PO PRN (10:17)
[2017-12-18] MEDS: THIAMINE HCL 100 MG TABLET (FP) PO SCH (21:28)
[2017-12-18] MEDS: FINASTERIDE 5 MG TABLET (FP) PO SCH (21:28)
[2017-12-18] MEDS: QUEtiapine FUMARATE 50 MG TABLET PO SCH (21:28)
[2017-12-18] MEDS: IBUPROFEN 400 MG TABLET (FP) PO PRN (21:28)
[2017-12-19 07:25] VITALS: BP 113/76; PULSE 67
--- NOTE | 2017-12-19 09:52 | PN ---
Psychiatric Progress Note Vital Signs: Vital Signs Period Temp Pulse Resp BP Sys/Vanessa Pulse Ox Last 24 Hr 98.0 F 67-85 18-20 113-129/73-76 Date of Session: 12/19/17 Chief Complaint:: "DISCHARGE" HPI: Patient with a history of alcohol and cocaine dependence. ROS: Unremarkable Current Medications: Active Medications Generic Name Dose Route Start Last Admin Trade Name Freq PRN Reason Stop Dose Admin Acetaminophen 650 mg 12/04/17 13:48 12/18/17 10:17 Tylenol - PO 650 mg Q4H PRN Administration FEVER Al Hydroxide/Mg Hydroxide 30 ml 12/04/17 13:48 12/09/17 13:22 Mylanta Oral Suspension - PO 30 ml Q6H PRN Administration DYSPEPSIA Aspirin 81 mg 12/05/17 10:00 12/18/17 10:16 Asa - PO 81 mg DAILY HAN Administration Eucalyptus/Menthol/Phenol/Sorbitol 1 each 12/04/17 13:48 Cepastat Lozenge - MM Q4H PRN SORE THROAT Finasteride 5 mg 12/04/17 22:00 12/18/17 21:28 Proscar - PO 5 mg HS HAN Administration Guaifenesin 10 ml 12/04/17 13:48 Robitussin Dm - PO Q6H PRN COUGH Hydroxyzine Pamoate 50 mg 12/04/17 13:48 Vistaril - PO Q4H PRN AGITATION Ibuprofen 400 mg 12/04/17 13:48 12/18/17 21:28 Motrin - PO 400 mg Q6H PRN Administration Pain Level 4-6 Loperamide HCl 4 mg 12/04/17 13:48 Imodium - PO Q6H PRN DIARRHEA Magnesium Citrate 300 ml 12/04/17 13:48 Citroma - PO Q48H PRN CONSTIPATION Magnesium Hydroxide 30 ml 12/04/17 13:48 Milk Of Magnesia - PO DAILY PRN CONSTIPATION Melatonin 5 mg 12/04/17 22:00 12/05/17 21:20 Melatonin PO 5 mg HS PRN Administration INSOMNIA Nicotine 14 mg 12/06/17 12:45 12/18/17 10:16 Nicoderm Patch - TD Not Given DAILY HAN Nicotine Polacrilex 2 mg 12/06/17 12:31 12/18/17 10:17 Nicorette Gum - BUC 2 mg Q2H PRN Administration NICOTINE REPLACEMENT RX Non-Formulary Medication 1 each 12/04/17 22:00 12/18/17 21:28 Abacavir/Dolutegravir/Lamivudi [Triumeq Tablet] PO 1 each HS HAN Administration Multivit/Folic Acid/Iron 1 tab 12/05/17 10:00 12/18/17 10:16 Vitamins (Sjr) - PO 1 tab DAILY HAN Administration Pseudoephedrine/Triprolidine 1 combo 12/04/17 13:48 Actifed - PO TID PRN NASAL CONGESTION Quetiapine Fumarate 150 mg 12/06/17 22:00 12/18/17 21:28 Seroquel - PO 150 mg HS HAN Administration Spironolactone 25 mg 12/05/17 10:00 12/18/17 10:16 Aldactone - PO 25 mg DAILY HAN Administration Thiamine HCl 100 mg 12/04/17 22:00 12/18/17 21:28 Vitamin B1 - PO 100 mg HS HAN Administration Medication(s) Change(s): No. Current Side Effect: No Lab tests ordered: No Lab tests reviewed: Yes Provider note:: Patient able to complete rehabilitation on 12/19/17. Patient has met his treatment goals and will continue to address his needs at the [facility] in the [place]. He is able to identify behaviors which contribute to relapse, and has been able to develop skills to maintain recovery. Pt. reports finding seroquel 150mg qhs effective. A 30 day supply of seroquel 150mg will be electronically sent to [facility] at [address] [place] [address]. Patient is stable for discharge. Total face to face time:: 35 Mental Status Exam - Mental Status Exam Alert and Oriented to: Time, Place, Person Cognitive Function: Good Patient Appearance: Well Groomed Mood: Hopeful Affect: Mood Congruent Patient Behavior: Appropriate Speech Pattern: Appropriate Voice Loudness: Normal Thought Process: Goal Oriented Thought Disorder: Not Present Hallucinations: Denies Suicidal Ideation: Denies Homicidal Ideation: Denies Insight/Judgement: Fair Sleep: Well Appetite: Good Muscle strength/Tone: Normal Gait/Station: Normal Psychiatric Treatment Plan - Problem List (1) Alcohol dependence Current Visit: Yes (2) Cocaine dependence Current Visit: Yes (3) Nicotine dependence Current Visit: Yes Qualifiers: Nicotine product type: cigarettes Substance use status: uncomplicated Qualified Code(s): F17.210 - Nicotine dependence, cigarettes, uncomplicated (4) Substance-induced sleep disorder Current Visit: Yes (5) Substance induced mood disorder Current Visit: Yes
[2017-12-19] MEDS: SPIRONOLACTONE 25 MG TABLET (FP) PO SCH (10:34)
[2017-12-19] MEDS: PRENATAL VITAMINS W/ FOLIC ACID TABLET (FP) PO SCH (10:34)
[2017-12-19] MEDS: NICOTINE 14 MG/24 HOURS TOPICAL PATCH TD SCH (10:34)
[2017-12-19] MEDS: ASPIRIN 81 MG CHEWABLE TABLETS PO SCH (10:34)
== END 2017-12-19 10:45 | disposition home or self-care (01) | DRG 772 ==
LOC: YASAS 12:52 → Y5N 12:54
PROVIDERS: ADMIT Psychiatry & Neurology Psychiatry; ATTEND Psychiatry & Neurology Psychiatry
PROC: HZ42ZZZ Group Counseling for Substance Abuse Treatment, Cognitive-Behavioral (ICD-10-PCS; principal; 2017-12-04)
DX: F10.20 Alcohol dependence, uncomplicated (principal); F14.20 Cocaine dependence, uncomplicated; F17.213 Nicotine dependence, cigarettes, with withdrawal; F19.24 Other psychoactive substance dependence with psychoactive substance-induced mood disorder; F19.282 Other psychoactive substance dependence with psychoactive substance-induced sleep disorder; I10 Essential (primary) hypertension; Z21 Asymptomatic human immunodeficiency virus [HIV] infection status; J34.89 Other specified disorders of nose and nasal sinuses; Y04.2XXA Assault by strike against or bumped into by another person, initial encounter

== ENCOUNTER 2022-10-13 09:47 | Inpatient (IN) | payer OTHER ==
[2022-10-13 10:11] VITALS: BMI 23.7
[2022-10-13] MEDS ORDERED: LOPERAMIDE HCL 2 MG CAPSULE PO PRN (10:41)
[2022-10-13] MEDS ORDERED: guaiFENesin 600 MG TABLET.ER (FP) PO PRN (10:41)
[2022-10-13] MEDS ORDERED: MAGNESIUM HYDROX 2400MG/30ML ORAL SUSPENSION 30 ML CUP PO PRN (10:41)
[2022-10-13] MEDS ORDERED: BENZONATATE 200 MG CAPSULE PO PRN (10:41)
[2022-10-13] MEDS ORDERED: hydrOXYzine PAMOATE 25 MG CAPSULE (FP) PO PRN (10:41)
[2022-10-13] MEDS ORDERED: POLYETHYLENE GLYCOL (HEALTHYLAX) 3350 17 GM PACKET PO PRN (10:41)
[2022-10-13] MEDS ORDERED: NICOTINE 7 MG/24 HOURS TOPICAL PATCH TD PRN (10:41)
[2022-10-13] MEDS ORDERED: NICOTINE POLACRILEX 2 MG GUM BC PRN (10:41)
[2022-10-13] MEDS ORDERED: ACETAMINOPHEN 325 MG TABLET (FP) PO PRN (10:41)
[2022-10-13] MEDS ORDERED: BENZOCAINE/MENTHOL (CHLORASEPTIC ) LOZENGE MM PRN (10:41)
[2022-10-13] MEDS ORDERED: IBUPROFEN 600 MG TABLET (FP) PO PRN (10:41)
[2022-10-13] MEDS ORDERED: MAG HYDROX/AL HYDROX/SIMETH 30 ML UNIT-DOSE CUP PO PRN (10:41)
[2022-10-13] MEDS ORDERED: NICOTINE 10 MG CARTRIDGE (INHALER) IH PRN (10:41)
[2022-10-13] MEDS ORDERED: IBUPROFEN 400 MG TABLET (FP) PO PRN (10:41)
[2022-10-13] MEDS ORDERED: TUBERCULIN PPD 5 TU/0.1ML SYRINGE (IN PATIENT USE ONLY) ID ONE (11:30)
[2022-10-13 17:15] LABS: HEMATOCRIT 40.5 % (35.4-49); HEMOGLOBIN 13.6 GM/dL (11.7-16.9); MCH 27.5 pg (25.7-33.7); MCHC 33.5 g/dl (32.0-35.9); MEAN CELL VOLUME 81.9 fl (80-96); PLATELET COUNT 390 10^3/uL (134-434); RBC 4.94 M/mm3 (4.00-5.60); RDW 15.6 % (11.9-15.9); WHITE BLOOD COUNT 6.9 K/mm3 (4.0-10.0)
[2022-10-13 17:19] LABS: ALBUMIN 3.6 g/dl (3.4-5.0); BLOOD UREA NITROGEN 18.8 mg/dL (7-18); CALCIUM 9.7 mg/dL (8.5-10.1)
[2022-10-13 17:22] LABS: CREATININE 1.1 mg/dL (0.55-1.3)
[2022-10-13 17:24] LABS: BILIRUBIN,TOTAL 0.5 mg/dL (0.2-1)
[2022-10-13 18:42] LABS: SYPHILIS W/ RPR CONF REACTIVE (NONREACTIVE)
[2022-10-13] MEDS: THIAMINE HCL 100 MG TABLET (FP) PO SCH (21:19)
[2022-10-13] MEDS ORDERED: ABACAVIR/DOLUTEGRAVIR/LAMIVUDI (TRIUMEQ) TABLET PO SCH (22:00)
[2022-10-13] MEDS ORDERED: MELATONIN 5 MG TABLETS PO SCH (22:00)
[2022-10-13] MEDS: FINASTERIDE 5 MG TABLET (FP) PO SCH (23:21)
[2022-10-14] MEDS: SPIRONOLACTONE 25 MG TABLET PO SCH (09:49)
[2022-10-14] MEDS: PRENATAL VITAMINS W/ FOLIC ACID TABLET (FP) PO SCH (09:49)
[2022-10-14] MEDS: amLODIPine BESYLATE 10 MG TABLET (FP) PO SCH (09:49)
[2022-10-14] MEDS: ASPIRIN 81 MG CHEWABLE TABLETS PO SCH (09:49)
[2022-10-14] MEDS ORDERED: amLODIPine BESYLATE 10 MG TABLET (FP) PO SCH (10:00)
[2022-10-14 13:13] LABS: EPI CELLS >36 /uL (0-25.1); HYALINE CASTS 0 /uL (0-3.1); PH,URINE 5.5 (5.0-8.0); URINE APPEARANCE CLEAR; URINE BACTERIA 874 /uL (0-1359); URINE BILIRUBIN NEGATIVE (NEGATIVE); URINE COLOR YELLOW; URINE GLUCOSE (UA) NEGATIVE (NEGATIVE); URINE KETONE NEGATIVE (NEGATIVE); URINE LEUK ESTERASE TRACE (NEGATIVE); URINE NITRITE NEGATIVE (NEGATIVE); URINE PROTEIN NEGATIVE (NEGATIVE); URINE RBC 2 /uL (0-23.9); URINE UROBILINOGEN 0.2 mg/dL (0.2-1.0); URINE WBC 35 /uL (0-25.8)
[2022-10-14] MEDS ORDERED: ABACAVIR/DOLUTEGRAVIR/LAMIVUDI (TRIUMEQ) TABLET PO ONE (15:30)
[2022-10-14] MEDS: THIAMINE HCL 100 MG TABLET (FP) PO SCH (21:21)
[2022-10-14] MEDS: FINASTERIDE 5 MG TABLET (FP) PO SCH (21:22)
[2022-10-14] MEDS ORDERED: QUEtiapine FUMARATE 50 MG TABLET PO SCH (22:00)
[2022-10-15 07:00] VITALS: RESP 17; TEMP 98
[2022-10-15] MEDS ORDERED: PENICILLIN G BENZATHINE 2,400,000 UNIT/4 ML PFS IM ONE (09:33)
[2022-10-15] MEDS ORDERED: ABACAVIR/DOLUTEGRAVIR/LAMIVUDI (TRIUMEQ) TABLET PO SCH (10:00)
[2022-10-15] MEDS: PRENATAL VITAMINS W/ FOLIC ACID TABLET (FP) PO SCH (10:01)
[2022-10-15] MEDS: amLODIPine BESYLATE 10 MG TABLET (FP) PO SCH (10:01)
[2022-10-15] MEDS: SPIRONOLACTONE 25 MG TABLET PO SCH (10:01)
[2022-10-15] MEDS: ASPIRIN 81 MG CHEWABLE TABLETS PO SCH (10:01)
[2022-10-15 11:02] VITALS: BP 128/87; PULSE 109
[2022-10-22] MEDS ORDERED: PENICILLIN G BENZATHINE 2,400,000 UNIT/4 ML PFS IM ONE (08:00)
[2022-10-29] MEDS ORDERED: PENICILLIN G BENZATHINE 2,400,000 UNIT/4 ML PFS IM ONE (08:00)
== END 2022-10-15 14:16 | disposition left against medical advice (07) | DRG 770 ==
LOC: YASAS 09:47 → Y3E 13:51
PROVIDERS: ADMIT Allergy & Immunology; ATTEND Psychiatry & Neurology Pain Medicine
PROC: HZ42ZZZ Group Counseling for Substance Abuse Treatment, Cognitive-Behavioral (ICD-10-PCS; principal; 2022-10-13)
DX: F15.20 Other stimulant dependence, uncomplicated (principal); F12.20 Cannabis dependence, uncomplicated; F17.210 Nicotine dependence, cigarettes, uncomplicated; F25.9 Schizoaffective disorder, unspecified; F19.282 Other psychoactive substance dependence with psychoactive substance-induced sleep disorder; F64.0 Transsexualism; Z21 Asymptomatic human immunodeficiency virus [HIV] infection status; I10 Essential (primary) hypertension; E11.9 Type 2 diabetes mellitus without complications; Z79.84 Long term (current) use of oral hypoglycemic drugs; N40.0 Benign prostatic hyperplasia without lower urinary tract symptoms; R63.4 Abnormal weight loss; Z68.23 Body mass index [BMI] 23.0-23.9, adult; Z86.19 Personal history of other infectious and parasitic diseases; Z28.310 Unvaccinated for COVID-19; Z28.9 Immunization not carried out for unspecified reason
CPT/HCPCS: 36415; 80053; 81003; 83036; 85027; 86593; 86780; 86803; 93005; 93010; C9803-CS; U0003; U0005